=== PATIENT | female | born 1965 | race Caucasian/White ===

== ENCOUNTER 2017-02-14 09:48 | Emergency (ER) | payer MEDICAID ==
[~2017-02-14] VITALS: Ht 175.3 cm; Wt 89.8 kg
[2017-02-14 10:38] LABS: Basophils # (auto) 0 uL; Basophils % (auto) 0.7 % (0.0-2.0); CONDITION Y; Eosinophils # (auto) 0.1 uL; Eosinophils % (auto) 1.8 % (0.0-7.0); Hematocrit 40.2 % (36.0-46.0); Hemoglobin 13.5 g/dL (12.2-16.2); Lymphocytes # (auto) 1.6 uL; Lymphocytes % (auto) 27.8 % (10.0-50.0); Mean Corpuscular Hgb Conc. 33.6 g/dL (32.0-36.0); Mean Platelet Volume 12.6 fL (7.4-10.4); Monocytes # (auto) 0.4 uL; Monocytes % (auto) 6.7 % (0.0-12.0); Neutrophils # (auto) 3.7 uL; Platelet Count (auto) 162 10^3/uL (140-450); Red Cell Distribution Width 12.7 % (11.6-16.0); White Blood Cell 5.8 10^3/uL (4.4-10.8)
[2017-02-14 10:56] LABS: Albumin 3.9 g/dL (3.4-5.0); BUN/Creatinine Ratio 19.3; Calcium 8.8 mg/dL (8.5-10.1); Potassium 4.4 mmol/L (3.5-5.1)
[2017-02-14 11:00] LABS: Bilirubin, Total 0.3 mg/dL (0.2-1.0); Total Protein 7.2 g/dL (6.4-8.2)
[2017-02-14 12:31] VITALS: BP 125/75
== END 2017-02-14 12:29 | disposition home or self-care (01) ==
LOC: ER 09:49
DX: K64.8 Other hemorrhoids (principal); Z88.0 Allergy status to penicillin; Z87.891 Personal history of nicotine dependence
CPT/HCPCS: 36415; 74176; 80053; 85025

== ENCOUNTER 2017-02-22 14:14 | Inpatient (IN) | payer MEDICAID ==
[~2017-02-22] VITALS: Ht 175.3 cm; Wt 93.9 kg
[2017-02-22] MEDS ORDERED: SODIUM CHLORIDE 0.9% 1,000 ML IVB ONE (14:42)
[2017-02-22] MEDS ORDERED: PANTOPRAZOLE 40 MG/10 ML VIAL IV STA (14:42)
[2017-02-22] MEDS ORDERED: ONDANSETRON HCL 4 MG/2 ML VIAL IV ONE (14:45)
[2017-02-22] MEDS ORDERED: HYDROmorphone HCL 2 MG/ML VL IV ONE (14:45)
[2017-02-22 15:12] LABS: Basophils # (auto) 0 uL; CONDITION Y; Eosinophils # (auto) 0 uL; Hematocrit 41.7 % (36.0-46.0); Hemoglobin 14.2 g/dL (12.2-16.2); Lymphocytes # (auto) 0.7 uL; Lymphocytes % (auto) 4.3 % (10.0-50.0); Mean Corpuscular Volume 91.2 fL (80.0-100.0); Mean Platelet Volume 12.6 fL (7.4-10.4); Monocytes # (auto) 0.5 uL; Monocytes % (auto) 2.7 % (0.0-12.0); Neutrophils # (auto) 15.7 uL; Platelet Count (auto) 172 10^3/uL (140-450); Red Cell Distribution Width 12.4 % (11.6-16.0); SUSPECT SEE PRINTOUT; White Blood Cell 16.9 10^3/uL (4.4-10.8)
[2017-02-22] MEDS ORDERED: LEVOFLOXACIN 500MG 100 ML IV ONE ×2 (15:15→16:45)
[2017-02-22 15:33] LABS: Anion Gap 11 (5-15); Blood Urea Nitrogen 16 mg/dL (7-18); Calcium 8.5 mg/dL (8.5-10.1); Carbon Dioxide 21 mmol/L (21-32); Chloride 105 mmol/L (98-107); GFR African American 92 mL/min; GFR Non-African American 76 mL/min; Glucose 127 mg/dL (74-106); Magnesium 2.3 mg/dL (1.6-2.6); Potassium 3.2 mmol/L (3.5-5.1); Sodium 137 mmol/L (136-145)
[2017-02-22 15:37] LABS: Amylase 32 U/L (25-115)
[2017-02-22 15:38] LABS: Alkaline Phosphatase 50 U/L (45-117); Aspartate Aminotransferase 14 U/L (15-37); Bilirubin, Total 0.5 mg/dL (0.2-1.0); Total Protein 7.5 g/dL (6.4-8.2)
[2017-02-22 15:44] LABS: INR 0.97 (0.9-1.15); Partial Thromboplastin Time 25.7 sec (22.64-33.71); Prothrombin Time 10.6 sec (9.37-12.3)
[2017-02-22] MEDS ORDERED: LORazepam 0.5 MG TAB PO PRN (15:45)
[2017-02-22] MEDS ORDERED: TEMAZEPAM 15 MG CAP PO PRN (15:45)
[2017-02-22] MEDS ORDERED: HYDROcodone-ACET 5/325MG TAB PO PRN (15:45)
[2017-02-22] MEDS ORDERED: ONDANSETRON HCL 4 MG/2 ML VIAL IV PRN (15:45)
[2017-02-22] MEDS ORDERED: POTASSIUM CHL 20 Meq TABLET PO ONE (15:45)
[2017-02-22] MEDS ORDERED: metroNIDAZOLE 500MG/100ML 100 ML IV ONE (15:45)
[2017-02-22] MEDS ORDERED: D5W/SOD CHL 0.45%/KCL 40MEQ 1,000 ML IV ONE (16:00)
[2017-02-22] MEDS: MORPHINE SULF INJ 2 MG/ML SYRINGE 1ML IV PRN ×2 (18:11→23:47)
[2017-02-22 18:15] VITALS: BP 129/76
[2017-02-22 20:00] VITALS: BP 111/73
[2017-02-22 20:28] LABS: Urine Bilirubin Negative (Negative); Urine Blood Negative /uL (Negative); Urine Color Yellow (Yellow); Urine Glucose TRACE mg/dL (Normal); Urine Mucus FEW (None Seen); Urine Nitrite Negative (Negative); Urine RBC 1 /hpf (0 - 4); Urine Squamous Epithelial Cell FEW /hpf (<5); Urine Urobilinogen Normal (Negative)
[2017-02-22 20:29] LABS: Urine Ketone 2+ (Negative)
[2017-02-22] MEDS: metroNIDAZOLE 500MG/100ML 100 ML IV SCH (21:31)
[2017-02-22 22:00] VITALS: BP 111/73
[2017-02-23 05:18] LABS: Basophils # (auto) 0 uL; Basophils % (auto) 0.2 % (0.0-2.0); CONDITION Y; Eosinophils # (auto) 0 uL; Eosinophils % (auto) 0.3 % (0.0-7.0); Hematocrit 41.5 % (36.0-46.0); Hemoglobin 13.8 g/dL (12.2-16.2); Lymphocytes # (auto) 1.7 uL; Lymphocytes % (auto) 12.8 % (10.0-50.0); Mean Corpuscular Hgb Conc. 33.3 g/dL (32.0-36.0); Mean Platelet Volume 12.9 fL (7.4-10.4); Monocytes # (auto) 0.5 uL; Monocytes % (auto) 4.1 % (0.0-12.0); Neutrophils # (auto) 10.9 uL; Neutrophils % (auto) 82.6 % (37.0-80.0); Platelet Count (auto) 154 10^3/uL (140-450); Red Cell Distribution Width 12.7 % (11.6-16.0); SUSPECT SEE PRINTOUT; White Blood Cell 13.3 10^3/uL (4.4-10.8)
[2017-02-23 05:30] VITALS: BP 104/66
[2017-02-23 05:30] LABS: Albumin 3.4 g/dL (3.4-5.0); Calcium 8.4 mg/dL (8.5-10.1); Potassium 3.7 mmol/L (3.5-5.1)
[2017-02-23 05:34] LABS: BUN/Creatinine Ratio 11.8
[2017-02-23 05:36] LABS: Bilirubin, Total 0.7 mg/dL (0.2-1.0); Total Protein 6.9 g/dL (6.4-8.2)
[2017-02-23] MEDS: metroNIDAZOLE 500MG/100ML 100 ML IV SCH ×3 (06:08→21:53)
[2017-02-23] MEDS ORDERED: SODIUM CHLORIDE LOCK 20 ML ONE (06:50)
[2017-02-23] MEDS ORDERED: fentaNYL CITRATE 100 MCG/2 ML VL ONE (06:50)
[2017-02-23] MEDS ORDERED: ROCURONIUM 10MG/ML 10ML VIAL IV ONE (06:50)
[2017-02-23] MEDS ORDERED: PROPOFOL 10 MG/ML 20 ML IV ONE (06:50)
[2017-02-23] MEDS ORDERED: LIDOCAINE HCL 100 MG/5ML (2%) SYRG INJ IV ONE (06:50)
[2017-02-23] MEDS ORDERED: NEOSTIGMINE 1 MG/ML INJ (10mg/10ML VIAL) ONE (06:50)
[2017-02-23] MEDS ORDERED: MIDAZOLAM HCL 1MG/1ML-2 ML VIAL ONE (06:50)
[2017-02-23] MEDS ORDERED: KETOROLAC TROMETH 60MG/2ML VIAL IM ONE (06:50)
[2017-02-23] MEDS ORDERED: ONDANSETRON HCL 4 MG/2 ML VIAL ONE (06:50)
[2017-02-23] MEDS ORDERED: GLYCOPYRROLATE 0.2 MG/ML 1ML VIAL ONE (06:50)
[2017-02-23] MEDS ORDERED: LEVOFLOXACIN 500MG 100 ML IV ONE (07:17)
[2017-02-23 07:30] VITALS: BP 111/73
[2017-02-23] MEDS ORDERED: MEPERIDINE HCL (50 MG/ML) 1 ML VIAL ONE (07:44)
[2017-02-23] MEDS ORDERED: KETOROLAC TROMETH 30 MG/ML 1ML VIAL IV ONE ×2 (08:45)
[2017-02-23] MEDS ORDERED: METOCLOPRAMIDE HCL 5MG/ml INJ 2ml VIAL IV ONE ×2 (08:45)
[2017-02-23] MEDS ORDERED: HYDROmorphone HCL 2 MG/ML VL IV PRN (08:45)
[2017-02-23] MEDS: HYDROmorphone HCL 2 MG/ML VL IV PRN ×2 (09:07→09:17)
[2017-02-23 13:00] VITALS: BP 118/78
[2017-02-23] MEDS: MORPHINE SULF INJ 2 MG/ML SYRINGE 1ML IV PRN ×3 (13:04→22:44)
[2017-02-23] MEDS: LEVOFLOXACIN 500MG 100 ML IV SCH (13:04)
[2017-02-23 17:00] VITALS: BP 100/52
[2017-02-23] MEDS: SODIUM CHLORIDE 0.9% 1,000 ML IV SCH (17:07)
[2017-02-23] MEDS ORDERED: HCTZ25T PO (19:54)
[2017-02-23] MEDS ORDERED: ETH1T PO (19:54)
[2017-02-23] MEDS ORDERED: LORA1TAB12 PO (19:54)
[2017-02-23] MEDS ORDERED: AMAN PO (19:54)
[2017-02-23] MEDS ORDERED: DEXT20CA PO (19:54)
[2017-02-23] MEDS ORDERED: IMIP50TA27 PO (19:54)
[2017-02-23] MEDS ORDERED: IBU600T PO (19:54)
[2017-02-23] MEDS ORDERED: TOPI25TA84 PO (19:54)
[2017-02-23] MEDS ORDERED: LOR05T GT (19:54)
[2017-02-23 21:30] VITALS: BP 116/70
[2017-02-24] MEDS: ACETAMINOPHEN 500 MG TAB PO PRN ×2 (00:58→10:01)
[2017-02-24] MEDS: SODIUM CHLORIDE 0.9% 1,000 ML IV SCH ×2 (03:50→17:10)
[2017-02-24 05:00] VITALS: BP 111/64
[2017-02-24 05:12] LABS: Basophils # (auto) 0 uL; Basophils % (auto) 0.2 % (0.0-2.0); CONDITION Y; Eosinophils # (auto) 0 uL; Eosinophils % (auto) 0.1 % (0.0-7.0); Hemoglobin 12.7 g/dL (12.2-16.2); Lymphocytes # (auto) 1.7 uL; Lymphocytes % (auto) 13.5 % (10.0-50.0); Mean Corpuscular Hemoglobin 31.4 pg (28.0-32.0); Mean Corpuscular Hgb Conc. 33.4 g/dL (32.0-36.0); Mean Platelet Volume 12.7 fL (7.4-10.4); Monocytes # (auto) 0.7 uL; Neutrophils # (auto) 9.8 uL; Neutrophils % (auto) 80.2 % (37.0-80.0); Platelet Count (auto) 166 10^3/uL (140-450); Red Cell Distribution Width 12.6 % (11.6-16.0); White Blood Cell 12.2 10^3/uL (4.4-10.8)
[2017-02-24 05:46] LABS: BUN/Creatinine Ratio 9.3; Calcium 8.5 mg/dL (8.5-10.1); Potassium 3.7 mmol/L (3.5-5.1)
[2017-02-24] MEDS: metroNIDAZOLE 500MG/100ML 100 ML IV SCH ×2 (06:09→14:02)
[2017-02-24] MEDS: LEVOFLOXACIN 500MG 100 ML IV SCH (09:25)
[2017-02-24] MEDS ORDERED: METR500T PO (10:54)
[2017-02-24] MEDS ORDERED: LEVO500T21 PO (10:54)
[2017-02-24 12:11] VITALS: BP 114/63
[2017-02-24 17:00] VITALS: BP 129/79
== END 2017-02-24 18:50 | disposition home or self-care (01) | DRG 710 ==
LOC: ER 14:23 → OVERFLOW 14:24 → EAST 17:36 → CENTRAL 18:53
PROVIDERS: ADMIT Nurse Practitioner Family; ATTEND Internal Medicine
PROC: 0DTJ4ZZ Resection of Appendix, Percutaneous Endoscopic Approach (ICD-10-PCS; principal; 2017-02-23 07:29)
DX: A41.9 Sepsis, unspecified organism (principal); G35 Multiple sclerosis; K35.80 Unspecified acute appendicitis; E87.6 Hypokalemia; K64.9 Unspecified hemorrhoids; Z90.710 Acquired absence of both cervix and uterus; Z88.0 Allergy status to penicillin; Z85.41 Personal history of malignant neoplasm of cervix uteri; Z87.891 Personal history of nicotine dependence; Z80.0 Family history of malignant neoplasm of digestive organs; Z83.3 Family history of diabetes mellitus
CPT/HCPCS: 36415; 71010; 74176; 80048; 80053; 81001; 82150; 83690; 83735; 84484; 85025; 85610; 85730; 86850; 86900; 86901; 93005; 94761; 96361; 96365; 96367; 96375; 96376; C9113; J1885; J1956; J2250; J2405; J2704; J3490

== ENCOUNTER 2021-02-03 15:40 | Emergency (ER) | payer OTHER, MEDICAID ==
[~2021-02-03] VITALS: Ht 175.3 cm; Wt 93.0 kg
[~2021-02-03 15:40] MED LIST: AMAN100C13 PO; DEXT20CA PO; ETH1T PO; HYDR25TA5 PO; IBUP600T28 PO; IMIP50TA2 PO; LEVO500T31 PO; LORA0.5T20 GT; LORA1TAB23 PO; METR500T PO; TOPI25TA84 PO
[2021-02-03 17:06] LABS: Urine Bacteria FEW /hpf (None Seen); Urine Blood Negative /uL (Negative); Urine Specific Gravity 1.021 (1.001-1.035); Urine WBC <1 /hpf (0 - 5)
[2021-02-03 20:02] VITALS: BP 138/86
== END 2021-02-03 20:09 | disposition home or self-care (01) ==
LOC: ER 15:40 → MERGE 15:40 → ER 20:09
DX: N39.0 Urinary tract infection, site not specified (principal); L03.012 Cellulitis of left finger; Z88.0 Allergy status to penicillin
CPT/HCPCS: 81001; 87086

== ENCOUNTER 2022-04-01 11:50 | Emergency (ER) | payer MEDICAID, OTHER ==
[~2022-04-01] VITALS: Ht 175.3 cm; Wt 84.0 kg
[2022-04-01 11:50] VITALS: BP 125/76
[2022-04-01] MEDS ORDERED: ASPirin 81 mg TAB PO ONE (12:15)
[2022-04-01 12:34] LABS: Basophils # (auto) 0.1 10 ^3/uL (0-0.2); Eosinophils # (auto) 0.1 10 ^3/uL (0-0.8); Hematocrit 44.2 % (36.0-46.0); Hemoglobin 14.5 g/dL (12.2-16.2); Lymphocytes # (auto) 1.2 10 ^3/uL (0.4-5.4); Lymphocytes % (auto) 23.2 % (10.0-50.0); Mean Corpuscular Hemoglobin 31.9 pg (28.0-32.0); Mean Corpuscular Hgb Conc. 32.7 g/dL (32.0-36.0); Mean Corpuscular Volume 97.4 fL (80.0-100.0); Monocytes # (auto) 0.3 10 ^3/uL (0-1.3); Monocytes % (auto) 6.5 % (0.0-12.0); Neutrophils # (auto) 3.6 10 ^3/uL (1.6-8.6); Neutrophils % (auto) 68.3 % (37.0-80.0); Nucleated Red Blood Cells % 0.1 %; Red Blood Cells 4.54 10^6/uL (4.0-5.20); Red Cell Distribution Width 12.3 % (11.8-14.3); White Blood Cell 5.3 10^3/uL (4.4-10.8)
[2022-04-01 12:38] LABS: Albumin 4.1 g/dL (3.4-5.0); Calcium 8.8 mg/dL (8.5-10.1); Magnesium 2.8 mg/dL (1.6-2.6); Potassium 4.5 mmol/L (3.5-5.1)
[2022-04-01 12:41] LABS: BUN/Creatinine Ratio 15.7; Bilirubin, Total 0.3 mg/dL (0.2-1.0); Total Protein 7.3 g/dL (6.4-8.2)
== END 2022-04-01 16:06 | disposition home or self-care (01) ==
LOC: ER 11:50
DX: R07.89 Other chest pain (principal); Z90.49 Acquired absence of other specified parts of digestive tract; Z90.710 Acquired absence of both cervix and uterus; Z87.891 Personal history of nicotine dependence; Z79.1 Long term (current) use of non-steroidal anti-inflammatories (NSAID); Z79.2 Long term (current) use of antibiotics; Z79.899 Other long term (current) drug therapy; Z88.0 Allergy status to penicillin
CPT/HCPCS: 36415; 71046; 80053; 83735; 84484; 85025; 85379; 93005

== ENCOUNTER 2022-10-09 10:05 | Emergency (ER) | payer OTHER ==
[~2022-10-09] VITALS: Ht 175.3 cm; Wt 87.8 kg
[2022-10-09 10:19] VITALS: BP 132/88
[2022-10-09 10:35] LABS: Urine WBC None Seen /hpf (0 - 5)
[2022-10-09 11:00] LABS: Urine Bacteria FEW /hpf (None Seen); Urine Blood Negative /uL (Negative); Urine Specific Gravity 1.005 (1.001-1.035)
[2022-10-09 11:09] LABS: Basophils # (auto) 0.1 10 ^3/uL (0-0.2); Basophils % (auto) 0.9 % (0.0-2.0); Eosinophils # (auto) 0.1 10 ^3/uL (0-0.8); Eosinophils % (auto) 1.1 % (0.0-7.0); Lymphocytes # (auto) 1.4 10 ^3/uL (0.4-5.4); Lymphocytes % (auto) 21.1 % (10.0-50.0); Mean Corpuscular Hemoglobin 31.8 pg (28.0-32.0); Mean Corpuscular Volume 93.5 fL (80.0-100.0); Monocytes # (auto) 0.6 10 ^3/uL (0-1.3); Monocytes % (auto) 9.4 % (0.0-12.0); Neutrophils # (auto) 4.5 10 ^3/uL (1.6-8.6); Neutrophils % (auto) 67.5 % (37.0-80.0); Nucleated Red Blood Cells % 0.1 %; Red Blood Cells 4.71 10^6/uL (4.0-5.20); Red Cell Distribution Width 12.3 % (11.8-14.3); White Blood Cell 6.6 10^3/uL (4.4-10.8)
[2022-10-09 11:11] LABS: Alcohol, Urine < 3.0 mg/dL (0-10); Amphetamine Screen, Urine NEGATIVE (NEGATIVE); Barbiturate Scree,Urine NEGATIVE (NEGATIVE); Benzodiazephine Screen, Urine NEGATIVE (NEGATIVE); Cannabinoid Screen, Urine NEGATIVE (NEGATIVE); Cocaine Screen, Urine NEGATIVE (NEGATIVE); Opiate Scree,Urine NEGATIVE (NEGATIVE); Phencyclidine Screen, Urine NEGATIVE (NEGATIVE)
[2022-10-09 11:32] LABS: Calcium 9.4 mg/dL (8.5-10.1); Potassium 3.7 mmol/L (3.5-5.1)
[2022-10-09 11:34] LABS: Bilirubin, Total 0.4 mg/dL (0.2-1.0); Total Protein 7.8 g/dL (6.4-8.2)
== END 2022-10-09 19:30 | disposition home or self-care (01) ==
LOC: ER 10:05
DX: R53.1 Weakness (principal); M54.50 Low back pain, unspecified; F12.10 Cannabis abuse, uncomplicated; Z88.0 Allergy status to penicillin; Z90.710 Acquired absence of both cervix and uterus; Z87.891 Personal history of nicotine dependence
CPT/HCPCS: 36415; 71045; 80053; 80307; 81001; 84484; 85025

== ENCOUNTER 2022-12-06 08:19 | Emergency (ER) | payer OTHER ==
[~2022-12-06] VITALS: Ht 175.3 cm; Wt 84.1 kg
[2022-12-06 10:20] LABS: Urine WBC None Seen /hpf (0 - 5)
[2022-12-06 11:00] LABS: Urine Bacteria FEW /hpf (None Seen); Urine Blood Negative /uL (Negative)
[2022-12-06 12:13] LABS: Basophils # (auto) 0.1 10 ^3/uL (0-0.2); Basophils % (auto) 0.7 % (0.0-2.0); Eosinophils # (auto) 0 10 ^3/uL (0-0.8); Eosinophils % (auto) 0.6 % (0.0-7.0); Hematocrit 46.3 % (36.0-46.0); Hemoglobin 15.5 g/dL (12.2-16.2); Lymphocytes # (auto) 1.2 10 ^3/uL (0.4-5.4); Lymphocytes % (auto) 17.4 % (10.0-50.0); Mean Corpuscular Hemoglobin 32.1 pg (28.0-32.0); Mean Corpuscular Hgb Conc. 33.4 g/dL (32.0-36.0); Mean Corpuscular Volume 95.9 fL (80.0-100.0); Monocytes # (auto) 0.5 10 ^3/uL (0-1.3); Neutrophils # (auto) 5.3 10 ^3/uL (1.6-8.6); Neutrophils % (auto) 74.3 % (37.0-80.0); Nucleated Red Blood Cells % 0.1 %; Red Blood Cells 4.83 10^6/uL (4.0-5.20); Red Cell Distribution Width 12.4 % (11.8-14.3); White Blood Cell 7.1 10^3/uL (4.4-10.8)
[2022-12-06 13:32] LABS: Calcium 9.5 mg/dL (8.5-10.1); Potassium 3.6 mmol/L (3.5-5.1)
[2022-12-06 13:38] LABS: Albumin 4.4 g/dL (3.4-5.0); BUN/Creatinine Ratio 23.9 (10.0-20.0); Bilirubin, Total 0.5 mg/dL (0.2-1.0); Total Protein 7.5 g/dL (6.4-8.2)
[2022-12-06 15:12] VITALS: BP 114/66
== END 2022-12-06 15:13 | disposition home or self-care (01) ==
LOC: ER 08:19
DX: B34.9 Viral infection, unspecified (principal); R51.9 Headache, unspecified; R07.89 Other chest pain; Z90.49 Acquired absence of other specified parts of digestive tract; Z90.710 Acquired absence of both cervix and uterus; Z87.891 Personal history of nicotine dependence; Z79.2 Long term (current) use of antibiotics; Z79.899 Other long term (current) drug therapy; Z88.0 Allergy status to penicillin; Z20.822 Contact with and (suspected) exposure to COVID-19
CPT/HCPCS: 36415; 70450; 71046; 80053; 81001; 83880; 84484; 85025; 85379; 87426; 87804; 93005

== ENCOUNTER 2023-03-09 06:47 | Emergency (ER) | payer OTHER ==
[~2023-03-09] VITALS: Ht 175.3 cm; Wt 86.3 kg
[~2023-03-09 06:47] MED LIST changes: -AMAN100C13 PO; +IBUP1TAB5 PO; -IBUP600T28 PO; -IMIP50TA2 PO; +LORA-1121 GT; +LORA-1123 PO; -LORA0.5T20 GT; -LORA1TAB23 PO; +[UNRECOGNIZED DRUG - CODE] PO; +[UNRECOGNIZED DRUG - CODE] PO
[2023-03-09 08:04] LABS: Basophils # (auto) 0 10 ^3/uL (0-0.2); Basophils % (auto) 0.9 % (0.0-2.0); Eosinophils # (auto) 0.1 10 ^3/uL (0-0.8); Eosinophils % (auto) 2.2 % (0.0-7.0); Hematocrit 44.7 % (36.0-46.0); Hemoglobin 15.2 g/dL (12.2-16.2); Lymphocytes # (auto) 1.1 10 ^3/uL (0.4-5.4); Lymphocytes % (auto) 20.4 % (10.0-50.0); Mean Corpuscular Hemoglobin 32.2 pg (28.0-32.0); Mean Corpuscular Hgb Conc. 33.9 g/dL (32.0-36.0); Mean Corpuscular Volume 94.9 fL (80.0-100.0); Monocytes # (auto) 0.4 10 ^3/uL (0-1.3); Monocytes % (auto) 7.3 % (0.0-12.0); Neutrophils # (auto) 3.6 10 ^3/uL (1.6-8.6); Neutrophils % (auto) 69.2 % (37.0-80.0); Nucleated Red Blood Cells % 0.1 %; Red Blood Cells 4.71 10^6/uL (4.0-5.20); Red Cell Distribution Width 12.3 % (11.8-14.3); White Blood Cell 5.2 10^3/uL (4.4-10.8)
[2023-03-09 08:15] LABS: Urine Bacteria MOD /hpf (None Seen); Urine Blood Negative /uL (Negative); Urine Clarity HAZY (Clear); Urine Color Yellow (Yellow); Urine Hyaline Cast FEW /lpf (0 - 2); Urine Mucus FEW (None Seen); Urine Protein, UAD TRACE (Negative); Urine Specific Gravity 1.018 (1.001-1.035); Urine Urobilinogen Normal (Negative); Urine WBC 1 /hpf (0 - 5)
[2023-03-09 08:16] LABS: Alanine Aminotransferase 23 U/L (7-40); Albumin 4.5 g/dL (3.2-4.8); Alkaline Phosphatase 55 U/L (46-116); Anion Gap 9.2 (5-15); Aspartate Aminotransferase 25 U/L (13-40); BUN/Creatinine Ratio 20.3 (10.0-20.0); Bilirubin, Total 0.4 mg/dL (0.2-1.0); Blood Urea Nitrogen 15 mg/dL (9-23); Calcium 9.3 mg/dL (8.5-10.1); Carbon Dioxide 23.8 mmol/L (20-30); Chloride 106 mmol/L (98-107); Glucose 94 mg/dL (74-106); Magnesium 2.2 mg/dL (1.6-2.6); Potassium 3.8 mmol/L (3.5-5.1); Sodium 139 mmol/L (136-145); Total Protein 6.7 g/dL (5.7-8.2)
[2023-03-09] MEDS ORDERED: SODIUM CHLORIDE 0.9% 1,000 ML IV ONE (08:45)
[2023-03-09] MEDS ORDERED: DexAMETHasone SOD PHOS 10MG/1ML VIAL INJ IM ONE (12:30)
[2023-03-09 12:49] VITALS: BP 122/84; PULSE 64; RESP 21; TEMP 98; O2SAT 99
== END 2023-03-09 13:00 | disposition home or self-care (01) ==
LOC: ER 06:47
DX: G35 Multiple sclerosis (principal); F12.90 Cannabis use, unspecified, uncomplicated; Z90.710 Acquired absence of both cervix and uterus; Z90.49 Acquired absence of other specified parts of digestive tract; Z87.891 Personal history of nicotine dependence
CPT/HCPCS: 36415; 70450; 71045; 80053; 81001; 82962; 83735; 83880; 84484; 85025; 93005; 96360; 96372; 99285; J1100; J7030

== ENCOUNTER → 2023-12-20 | Outpatient (CLI) | payer OTHER ==
[~2023-12-20] MED LIST changes: +IMIP50TA PO; -[UNRECOGNIZED DRUG - CODE] PO
[2023-12-20 09:40] LABS: Basophils # (auto) 0.1 10 ^3/uL (0-0.2); Eosinophils # (auto) 0.1 10 ^3/uL (0-0.8); Hematocrit 42.4 % (36.0-46.0); Hemoglobin 14.1 g/dL (12.2-16.2); Lymphocytes # (auto) 1.3 10 ^3/uL (0.4-5.4); Lymphocytes % (auto) 21.6 % (10.0-50.0); Mean Corpuscular Hemoglobin 31.1 pg (28.0-32.0); Mean Corpuscular Hgb Conc. 33.4 g/dL (32.0-36.0); Mean Corpuscular Volume 93.1 fL (80.0-100.0); Monocytes # (auto) 0.5 10 ^3/uL (0-1.3); Monocytes % (auto) 7.9 % (0.0-12.0); Neutrophils # (auto) 4.2 10 ^3/uL (1.6-8.6); Neutrophils % (auto) 67.5 % (37.0-80.0); Nucleated Red Blood Cells % 0.1 %; Red Blood Cells 4.55 10^6/uL (4.0-5.20); Red Cell Distribution Width 13.3 % (11.8-14.3); White Blood Cell 6.2 10^3/uL (4.4-10.8)
[2023-12-20 09:52] LABS: Urine Bacteria None Seen /hpf (None Seen); Urine WBC None Seen /hpf (0 - 5)
[2023-12-20 09:59] LABS: Urine Blood Negative /uL (Negative); Urine Clarity Clear (Clear); Urine Color Light-Yellow (Yellow); Urine Protein, UAD TRACE (Negative); Urine Specific Gravity 1.023 (1.001-1.035); Urine Urobilinogen Normal (Negative); Urine pH 6.5 (5.0-9.0)
[2023-12-20 10:16] LABS: Alanine Aminotransferase 16 U/L (7-40); Alkaline Phosphatase 47 U/L (46-116); Anion Gap 6 (5-15); BUN/Creatinine Ratio 15.7 (10.0-20.0); Blood Urea Nitrogen 13 mg/dL (9-23); Calcium 9.7 mg/dL (8.5-10.1); Carbon Dioxide 26 mmol/L (20-30); Chloride 108 mmol/L (98-107); Glucose 89 mg/dL (74-106); Potassium 3.8 mmol/L (3.5-5.1); Sodium 140 mmol/L (136-145); Triglycerides 119 mg/dL (< 150)
[2023-12-20 10:17] LABS: Albumin 4.5 g/dL (3.2-4.8); LDL Cholesterol 91 mg/dL (< 100)
[2023-12-20 10:18] LABS: Aspartate Aminotransferase 14 U/L (13-40); Bilirubin, Total 0.5 mg/dL (0.2-1.0); Cholesterol 189 mg/dL (< 200); HDL Cholesterol 75 mg/dL (40-59)
[2023-12-21 18:06] LABS: Chlamydia Trachomatis, NAA Negative (Negative); Neisseria gonorrhoeae, NAA Negative (Negative)
== END | disposition home or self-care (01) ==
LOC: LAB 09:23
DX: Z00.01 Encounter for general adult medical examination with abnormal findings (principal); Z12.11 Encounter for screening for malignant neoplasm of colon; M25.50 Pain in unspecified joint; E55.9 Vitamin D deficiency, unspecified; Z11.3 Encounter for screening for infections with a predominantly sexual mode of transmission
CPT/HCPCS: 36415; 80053; 80061; 81001; 82306; 83036; 84443; 85025; 86431

== ENCOUNTER 2024-05-16 15:52 | Inpatient (IN) | payer OTHER ==
[~2024-05-16] VITALS: Ht 175.3 cm; Wt 99.0 kg
--- NOTE | 2024-05-16 16:07 | ED.PDOC ---
History of Present Illness HPI Comments 58-year-old female presents with a chief complaint of body pain. Patient states that she is having generalized body pain. Patient has MS and believes that she is having a flare up. Patient reports that her body "feels like I want to fall over". Patient denies any injuries or trauma. Chief Complaint: Body Pain Time Seen by MD: 15:58 Primary Care Provider: ISADORA Lafleur Notes: Medications, Allergies Allergies: Coded Allergies: Penicillins (Verified Allergy, Mild, 12/01/10) Home Meds Active Scripts Metronidazole (Flagyl) 500 Mg Tab, 500 MG PO TID, #21 TAB Prov:SHANNA STODDARD MD 02/24/17 Levofloxacin (Levaquin) 500 Mg Tab, 500 MG PO DAILY, #7 TAB Prov:SHANNA STODDARD MD 02/24/17 Reported Medications Dextromethorphan Hbr-Quinidine (NUEDEXTA) 1 Cap Cap, 1 CAP PO DAILY, CAP 02/23/17 Topiramate (Topiramate) 25 Mg Tab, 1 TAB PO BID, #60 TAB 02/23/17 Lorazepam (Lorazepam) 1 Mg Tab, 1 TAB PO TID, #90 TAB 02/23/17 Lorazepam (ATIVAN TABLET) 0.5 Mg Tb, 0.5 MG GT 02/23/17 Imipramine Hcl (Imipramine Hcl) 50 Mg Tab, 50 MG PO HS, TAB 02/23/17 Ibuprofen Micronized (Ibuprofen) 600 Mg Tab, 600 MG PO, TAB 02/23/17 Hctz (Hydrochlorothiazide) 25 Mg Tab, 12.5 MG PO EOD, TAB 02/23/17 Estradiol (ESTRACE TABLET) 1 Mg Tb, 1 MG PO DAILY 02/23/17 Amantadine HCl (Amantadine HCl) 100 Mg Cap, 100 MG PO BID, CAP 02/23/17 Information Source: Patient Mode of Arrival: Ambulatory Severity: Moderate Timing: Hours Duration: Since onset Prehospital treatment: None Vital Signs Vital Signs Date Time Temp Pulse Resp B/P (MAP) Pulse Ox O2 Delivery O2 Flow Rate FiO2 05/16/24 16:00 97.7 98 24 150/81 (104) 100 Past Medical History PAST MEDICAL HISTORY: Cancer, Dementia Surgical History: Appendectomy, Hysterectomy COMMUNITY RELATIONS DIRECTOR History: Cervical Cancer Family History Family History: Reviewed,noncontributory to illness, No family hx of DM Social History Smoker: Quit Less Than 1 Year Alcohol: Rarely Drugs: Marijuana Lives In: Home Was a procedure done? Was a procedure done?: No X-Ray, Labs, Meds, VS Vital Signs Date Time Temp Pulse Resp B/P (MAP) Pulse Ox O2 Delivery O2 Flow Rate FiO2 05/16/24 16:00 97.7 98 24 150/81 (104) 100 Lab Test 05/16/24 16:19 Range/Units White Blood Count 7.8 4.4-10.8 10^3/uL Red Blood Count 4.65 4.0-5.20 10^6/uL Hemoglobin 14.5 12.2-16.2 g/dL Hematocrit 42.8 36.0-46.0 % Mean Corpuscular Volume 92.0 80.0-100.0 fL Mean Corpuscular Hemoglobin 31.2 28.0-32.0 pg Mean Corpuscular Hemoglobin Concent 33.9 32.0-36.0 g/dL Red Cell Distribution Width 12.6 11.8-14.3 % Platelet Count 192 140-450 10^3/uL Mean Platelet Volume 10.6 6.9-10.8 fL Neutrophils (%) (Auto) 76.4 37.0-80.0 % Lymphocytes (%) (Auto) 16.2 10.0-50.0 % Monocytes (%) (Auto) 5.2 0.0-12.0 % Eosinophils (%) (Auto) 1.6 0.0-7.0 % Basophils (%) (Auto) 0.6 0.0-2.0 % Neutrophils # (Auto) 6.0 1.6-8.6 10 ^3/uL Lymphocytes # (Auto) 1.3 0.4-5.4 10 ^3/uL Monocytes # (Auto) 0.4 0-1.3 10 ^3/uL Eosinophils # (Auto) 0.1 0-0.8 10 ^3/uL Basophils # (Auto) 0 0-0.2 10 ^3/uL Nucleated Red Blood Cells 0.1 % Sodium Level 139 136-145 mmol/L Potassium Level 3.7 3.5-5.1 mmol/L Chloride Level 105 98-107 mmol/L Carbon Dioxide Level 26 20-31 mmol/L Anion Gap 8 5-15 Blood Urea Nitrogen 18 9-23 mg/dL Creatinine 0.87 0.550-1.02 mg/dL Glomerular Filtration Rate Calc 77 >90 mL/min BUN/Creatinine Ratio 20.7 H 10.0-20.0 Serum Glucose 109 H 74-106 mg/dL Calcium Level 10.0 8.7-10.4 mg/dL Magnesium Level 2.3 1.6-2.6 mg/dL Total Bilirubin 0.4 0.2-1.0 mg/dL Aspartate Amino Transferase (AST) 19 13-40 U/L Alanine Aminotransferase (ALT) 15 7-40 U/L Alkaline Phosphatase 52 46-116 U/L Total Protein 7.4 5.7-8.2 g/dL Albumin 4.7 3.2-4.8 g/dL [place] [address] Ph: [phone] DIAGNOSTIC IMAGING Diagnostic Imaging Report : [id number] Signed PATIENT: KRISS LIMON ACCT: [id number] UNIT: [id number] : 1965 LOC: ER ROOM / BED: / AGE / SEX: 58 / F ADM STATUS: REG ER SERVICE 1605 ORDERING PHYSICIAN: CODIE DOMINGO MD PROCEDURE(s): HWOCT - HEAD WITHOUT CONTRAST REASON: Increased Multiple Scelorsisi Symptoms ORDER NUMBER(s): [id number], ACCESSION NUMBER(s): [id number] EXAM: CT HEAD WITHOUT CONTRAST INDICATION: Increased Multiple Scelorsisi Symptoms TECHNIQUE: CT of the head without intravenous contrast. Radiation Dose Information: CT Dose: CTDI volume is 53.31 mGy. Dose-length product is 1050.68 mGy*cm The dose indicators for CT are the volume Computed Tomography (CT) Dose Index (CTDIvol) and the Dose Length Product (DLP), and are measured in units of mGy and mGy-cm, respectively. These indicators are not patient dose, but values generated from the CT scanner acquisition factors. The report includes radiation exposure data for exposures received during this examination. COMPARISON: 03/09/2023 FINDINGS: There is no evidence of acute intracranial hemorrhage, extra-axial collection, mass effect, midline shift, herniation or hydrocephalus. The ventricles, sulci and cisterns are age appropriate. The bergman-white differentiation is intact. Patchy periventricular and subcortical white matter hypoattenuation is nonspecific but may be related to small vessel ischemic disease. The visualized paranasal sinuses and mastoid air cells are clear. The surrounding soft tissues and osseous structures are unremarkable. IMPRESSION: 1. Negative noncontrast CT of the head unchanged from 03/09/2023. 2. Recommend nonemergent MRI to evaluate for MS plaques which are not apparent on noncontrast CT head. ATED BY: TELLY BRADY Jr., DO DICTATED DATE/TIME: 05/16/241637 SIGNED BY: TELLY BRADY Jr., SIGNED DATE/TIME: 05/16/241637 CC: Time of 1ST Reevaluation: 16:28 Reevaluation 1ST: Unchanged Patient Education/Counseling: Diagnosis, Treatment, Prognosis Family Education/Counseling: No Family Present Departure 1 Departure Time of Disposition: 17:53 Impression: Primary Impression: Exacerbation of multiple sclerosis Disposition: ADMITTED INPATIENT Critical Care Note Critical Care Time?: No Stability Stability form required: No I personally scribed for CODIE DOMINGO MD ([email or web address]) on 05/16/24 at 16:07. Electronically submitted by Julián Saha ([email or web address]). I personally scribed for CODIE DOMINGO MD ([email or web address]) on 05/16/24 at 17:43. Electronically submitted by Tracey Hendricks ([email or web address]). CODIE DOMINGO MD May 16, 2024 16:07
[2024-05-16 16:24] LABS: Basophils # (auto) 0 10 ^3/uL (0-0.2); Basophils % (auto) 0.6 % (0.0-2.0); Eosinophils # (auto) 0.1 10 ^3/uL (0-0.8); Eosinophils % (auto) 1.6 % (0.0-7.0); Hematocrit 42.8 % (36.0-46.0); Hemoglobin 14.5 g/dL (12.2-16.2); Lymphocytes # (auto) 1.3 10 ^3/uL (0.4-5.4); Lymphocytes % (auto) 16.2 % (10.0-50.0); Mean Corpuscular Hemoglobin 31.2 pg (28.0-32.0); Mean Corpuscular Hgb Conc. 33.9 g/dL (32.0-36.0); Monocytes # (auto) 0.4 10 ^3/uL (0-1.3); Monocytes % (auto) 5.2 % (0.0-12.0); Neutrophils % (auto) 76.4 % (37.0-80.0); Nucleated Red Blood Cells % 0.1 %; Platelet Count (auto) 192 10^3/uL (140-450); Red Blood Cells 4.65 10^6/uL (4.0-5.20); Red Cell Distribution Width 12.6 % (11.8-14.3); White Blood Cell 7.8 10^3/uL (4.4-10.8)
--- NOTE | 2024-05-16 16:41 | DVH ---
EXAM: CT HEAD WITHOUT CONTRAST INDICATION: Increased Multiple Scelorsisi Symptoms TECHNIQUE: CT of the head without intravenous contrast. Radiation Dose Information: CT Dose: CTDI volume is 53.31 mGy. Dose-length product is 1050.68 mGy*cm The dose indicators for CT are the volume Computed Tomography (CT) Dose Index (CTDIvol) and the Dose Length Product (DLP), and are measured in units of mGy and mGy-cm, respectively. These indicators are not patient dose, but values generated from the CT scanner acquisition factors. The report includes radiation exposure data for exposures received during this examination. COMPARISON: 03/09/2023 FINDINGS: There is no evidence of acute intracranial hemorrhage, extra-axial collection, mass effect, midline s hift, herniation or hydrocephalus. The ventricles, sulci and cisterns are age appropriate. The bergman-white differentiation is intact. Patchy periventricular and subcortical white matter hypoattenuation is nonspecific but may be related to small vessel ischemic disease. The visualized paranasal sinuses and mastoid air cells are clear. The surrounding soft tissues and osseous structures are unremarkable. IMPRESSION: 1. Negative noncontrast CT of the head unchanged from 03/09/2023. 2. Recommend nonemergent MRI to evaluate for MS plaques which are not apparent on noncontrast CT head .
[2024-05-16 16:45] LABS: Alanine Aminotransferase 15 U/L (7-40); Albumin 4.7 g/dL (3.2-4.8); Alkaline Phosphatase 52 U/L (46-116); Anion Gap 8 (5-15); Aspartate Aminotransferase 19 U/L (13-40); BUN/Creatinine Ratio 20.7 (10.0-20.0); Bilirubin, Total 0.4 mg/dL (0.2-1.0); Blood Urea Nitrogen 18 mg/dL (9-23); Carbon Dioxide 26 mmol/L (20-31); Chloride 105 mmol/L (98-107); Glucose 109 mg/dL (74-106); Magnesium 2.3 mg/dL (1.6-2.6); Potassium 3.7 mmol/L (3.5-5.1); Sodium 139 mmol/L (136-145); Total Protein 7.4 g/dL (5.7-8.2)
[2024-05-16 19:01] LABS: Urine Bacteria MOD /hpf (None Seen); Urine Blood Negative /uL (Negative); Urine Clarity Clear (Clear); Urine Color Light-Yellow (Yellow); Urine Hyaline Cast FEW /lpf (0 - 2); Urine Protein, UAD Negative (Negative); Urine Specific Gravity 1.016 (1.001-1.035); Urine Urobilinogen Normal (Negative); Urine WBC <1 /hpf (0 - 5); Urine pH 5.5 (5.0-9.0)
--- NOTE | 2024-05-16 19:57 | DVHINCON2 ---
Date of service: May 16, [address] Burkett Reason for Consultation MS flare History of Present Illness Patient was talks excessively, she does not answer my questions properly, this is a difficult consultation Ms. Morales is a right-handed female with a history of anxiety, depression, asthma, cervical cancer s/p hysterectomy, she came to the [facility] on 05/16/2024 with a chief company of MS flares up. At this time, she was alert, fully oriented, but she is a very difficult historian, as a result, very long time spent with her to go obtained a history Because of a lot of nonspecific symptoms starting around 2013, the patient was diagnosed with multiple sclerosis in 2017 in the [facility] after MRI head, spine, lumbar puncture (she reports seven bands obtained) ([facility] progressive note, 01/30/15: increased oligoclonal bands, Normal IgG index). Today she came to the hospital because she was body pain, she feels her neck collapsing from the shoulder, body with collapsing from the waist, she has to use two cane to walk because for balance, the symptoms were typically present when she had MS exacerbation He was on many different MS medication, including Tysabri, Ocrevus, Mayzent. Tysabri and Mayzen helped, but Ocrevus caused severe side effects. The last time she had medication was about one year ago She reports that she has MS exacerbation once a few months of time, The following is the information I obtained from out of facility [facility] MRI CSP wwo, 12/04/20: Severe canal stenosis with mild impingement on the ventral thecal sac at C5-C6. Mild nonspecific increased or signal and postcontrast enhancement in the disc space at C5-C6. Findings could represent discitis in the appropriate clinical setting. Clinical correlation advised (The intrinsic cervical cord signal appears intact) MRI TSP wwo, 12/04/20: No significant posterior disc disease, central canal or neural foraminal narrowing (The thoracic cord signal and contour appear intact.) MRI LSP wwo, 12/04/20: Multilevel degenerative changes of the spine most severe at L5-S1 LLU info Progressive note, 01/30/15: increased oligoclonal bands, Normal IgG index EEG, 11/14/14: Mildly abnormal EEG MRI head, 10/25/13: Increased FLAITR and T2 lesions. Not felt to be typical of demyelination disease MRI CSP, 09/18/23: Degeneration MRI TSP, 09/17/13: Normal MRI LSP, 09/17/13: Degeneration Urinalysis, 04/29/2024: No UTI CBC, 05/16/2024: Unremarkable CMP, 04/29/2024: Unremarkable TG/HDL/LDL/HDL, 12/2023: 119/189/91/75 CT head, 05/16/24: 1. Negative noncontrast CT of the head unchanged from 03/09/2023. 2. Recommend nonemergent MRI to evaluate for MS plaques which are n ot apparent on noncontrast CT head Past Medical History Cervical cancer, dementia Past Surgical History Appendectomy, hysterectomy, low back surgery, Family History: Cancer of colon G8 FATHER Family history: Diabetes mellitus G8 MOTHER Family History Diabetes, cancer, Anxiety Social History She was tobacco smoke, but denies a history of alcohol or recreational sub stances abuse Allergies: Coded Allergies: Penicillins (Verified Allergy, Mild, 12/01/10) Home Meds Active Scripts Metronidazole (Flagyl) 500 Mg Tab, 500 MG PO TID, #21 TAB Prov:SHANNA STODDARD MD 02/24/17 Levofloxacin (Levaquin) 500 Mg Tab, 500 MG PO DAILY, #7 TAB Prov:SHANNA STODDARD MD 02/24/17 Reported Medications Dextromethorphan Hbr-Quinidine (NUEDEXTA) 1 Cap Cap, 1 CAP PO DAILY, CAP 02/23/17 Topiramate (Topiramate) 25 Mg Tab, 1 TAB PO BID, #60 TAB 02/23/17 Lorazepam (Lorazepam) 1 Mg Tab, 1 TAB PO TID, #90 TAB 02/23/17 Lorazepam (ATIVAN TABLET) 0.5 Mg Tb, 0.5 MG GT 02/23/17 Imipramine Hcl (Imipramine Hcl) 50 Mg Tab, 50 MG PO HS, TAB 02/23/17 Ibuprofen Micronized (Ibuprofen) 600 Mg Tab, 600 MG PO, TAB 02/23/17 Hctz (Hydrochlorothiazide) 25 Mg Tab, 12.5 MG PO EOD, TAB 02/23/17 Estradiol (ESTRACE TABLET) 1 Mg Tb, 1 MG PO DAILY 02/23/17 Amantadine HCl (Amantadine HCl) 100 Mg Cap, 100 MG PO BID, CAP 02/23/17 Review of Systems As above, the other systems are negative Vital Signs Vital Signs Date Time Temp Pulse Resp B/P (MAP) Pulse Ox O2 Delivery O2 Flow Rate FiO2 05/16/24 16:00 97.7 98 24 150/81 (104) 100 Physical Exam GENERAL EXAM: General: the patient is well developed and nourished. No acute distress. HEENT: Normocephalic, neck is supple, no carotid bruits. No mass. RESPIRATORY: Normal respiratory effort with symmetrical lung expansion. Lungs clear to auscultation. CARDIOVASCULAR: Regular rate and rhythm with no murmurs. S1, S2. ABDOMEN: Soft, nontender, normal bowel sound NEUROLOGICAL: MENTAL STATUS: Awake and alert. Oriented to person, place, time and general circumstances. Able to give personal history SPEECH, LANGUAGE, HIGHER CORTICAL FUNCTION: no aphasia or dysathria. CRANIAL NERVES: #2: Intact visual forde to confrontation. The optic discs were sharp. #3,4,6: Pupils are equal, round and reactive. EOMs full and conjugate. No nystagmus. #5: Facial sensation intact in all three divisions bilaterally. Mandibular strength intact. #7: Facial muscles symmetrical and strength intact. #8: Hearing grossly normal to voice. #9,10: Uvula and soft palate rise in the midline. Swallow and voice are normal. #11: Trapezius and sternomastoid strength intact bilaterally. #12: Tongue midline. No fasciculations or atrophy. SENSATION: Sensation to touch and pinprick is normal. MOTOR: Normal tone in the upper and lower extremity. Normal muscle bulk. No fasciculations. No abnormal movements or posturing. Muscle strength of the major groups in the upper extremities is 5/5. Muscle strength of the major groups in the lower extremities is 5/5. REFLEXES: Deep tendon reflexes are symmetrical. No pathological reflexes. CEREBELLAR/COORDINATION: Finger to nose ise normal bilaterally. GAIT/STATION: deferred. Labs/Diagnostic Data Labs Test 05/16/24 18:46 05/16/24 16:19 Range/Units Urine Color Light-yellow Yellow Urine Clarity Clear Clear Urine pH 5.5 5.0-9.0 Urine Specific [place] 1.016 1.001-1.035 Urine Protein Negative Negative Urine Ketones Negative Negative Urine Blood Negative Negative /uL Urine Nitrite Negative Negative Urine Bilirubin Negative Negative Urine Urobilinogen Normal Negative mg/dL Urine Leukocyte Esterase Negative Negative /uL Urine RBC 1 0 - 4 /hpf Urine WBC <1 0 - 5 /hpf Urine Squamous Epithelial Cells Few <5 /hpf Urine Bacteria Mod H None Seen /hpf Urine Hyaline Casts Few 0 - 2 /lpf Urine Glucose Normal Normal mg/dL White Blood Count 7.8 4.4-10.8 10^3/uL Red Blood Count 4.65 4.0-5.20 10^6/uL Hemoglobin 14.5 12.2-16.2 g/dL Hematocrit 42.8 36.0-46.0 % Mean Corpuscular Volume 92.0 80.0-100.0 fL Mean Corpuscular Hemoglobin 31.2 28.0-32.0 pg Mean Corpuscular Hemoglobin Concent 33.9 32.0-36.0 g/dL Red Cell Distribution Width 12.6 11.8-14.3 % Platelet Count 192 140-450 10^3/uL Mean Platelet Volume 10.6 6.9-10.8 fL Neutrophils (%) (Auto) 76.4 37.0-80.0 % Lymphocytes (%) (Auto) 16.2 10.0-50.0 % Monocytes (%) (Auto) 5.2 0.0-12.0 % Eosinophils (%) (Auto) 1.6 0.0-7.0 % Basophils (%) (Auto) 0.6 0.0-2.0 % Neutrophils # (Auto) 6.0 1.6-8.6 10 ^3/uL Lymphocytes # (Auto) 1.3 0.4-5.4 10 ^3/uL Monocytes # (Auto) 0.4 0-1.3 10 ^3/uL Eosinophils # (Auto) 0.1 0-0.8 10 ^3/uL Basophils # (Auto) 0 0-0.2 10 ^3/uL Nucleated Red Blood Cells 0.1 % Sodium Level 139 136-145 mmol/L Potassium Level 3.7 3.5-5.1 mmol/L Chloride Level 105 98-107 mmol/L Carbon Dioxide Level 26 20-31 mmol/L Anion Gap 8 5-15 Blood Urea Nitrogen 18 9-23 mg/dL Creatinine 0.87 0.550-1.02 mg/dL Glomerular Filtration Rate Calc 77 >90 mL/min BUN/Creatinine Ratio 20.7 H 10.0-20.0 Serum Glucose 109 H 74-106 mg/dL Calcium Level 10.0 8.7-10.4 mg/dL Magnesium Level 2.3 1.6-2.6 mg/dL Total Bilirubin 0.4 0.2-1.0 mg/dL Aspartate Amino Transferase (AST) 19 13-40 U/L Alanine Aminotransferase (ALT) 15 7-40 U/L Alkaline Phosphatase 52 46-116 U/L Total Protein 7.4 5.7-8.2 g/dL Albumin 4.7 3.2-4.8 g/dL Assessment Multiple sclerosis, clinically not very convincing Multiple sclerosis exacerbation, clinically not very convincing Plan/Recommendation Monitoring Supportive treatment Telemetry MRI brain with and without MRI C-spine with and without IV Solu-Medrol 1000 mg daily x 5 GI prophylaxis DVT prophylaxis Up to chair Physical therapy More recommendation per clinical course Prognosis: Poor This medical document was created using an electronic medical record system with [employer] dictation system. Although this document has been carefully reviewed, there may still be some phonetic and typographical errors. These areas are purely typographical due to imperfections of the software programs, and do not reflect any compromise in the patient's medical care. Plan discussed with: Patient, Other ANA MARÍA CHACKO MD May 16, 2024 19:57
[2024-05-16] MEDS: methylPREDNISolone SOD SUCC 125 MG/2 ML VL IV ONE (20:20)
[2024-05-16 20:57] VITALS: BP 108/58; PULSE 75; RESP 16; TEMP 97.2; O2SAT 96
[2024-05-16] MEDS ORDERED: methylPREDNISolone SOD SUCC 40 MG/ML VL IV SCH (22:00)
[2024-05-16] MEDS ORDERED: NITROGLYCERIN 0.4 MG SL TAB SL PRN (22:30)
[2024-05-16] MEDS ORDERED: ONDANSETRON HCL 4 MG/2 ML VIAL IV PRN (22:30)
[2024-05-16] MEDS ORDERED: MORPHINE SULFATE INJ 2 MG/ml SYRG IV PRN (22:30)
[2024-05-16] MEDS ORDERED: DOCUSATE SOD 100 MG CAP PO PRN (22:30)
[2024-05-16] MEDS: methylPREDNISolone SOD SUCC 1,000 MG in SODIUM CHL 0.9% 250 ML IV SCH (22:54)
[2024-05-16] MEDS: ENOXAPARIN SOD 40 MG/0.4 ML SYRINGE SC SCH (23:13)
--- NOTE | 2024-05-17 00:39 | DVHHPRES ---
History of Present Illness Resident Creating Document: SERG WALTERS RESIDENT History of Present Illness KRISS LIMON is a 58 years old female with a PMH of multiple sclerosis, asthma, lower back pain, cervical cancer status post cone surgery presented to the ED with the chief complaints of generalized body pains, jerking and stiffness since 2 days prior to admission. Patient reported she feels like her neck and abdomen is collapsing, associated with jerking, stiffness. Patient believes she she is having MS flare-up. Patient also reported she has been depending on her 2 canes for activities. She denies fever, chest pain, nausea, vomiting, diarrhea, diaphoresis and other associated symptoms Past Medical History multiple sclerosis, asthma, lower back pain, cervical cancer Past Surgical History Cervical cancer status post cone surgery, lower back surgery, appendectomy, hysterectomy Family History Colon cancer in father, diabetes in mom, heart attack in grandmother Past Social History Lives with the son, former smoker (smoked for 25-35 years less than pack per day), former marijuana smoker Review of Systems Constitutional: Yes: Weakness Eyes: No: Pain, Vision change, Conjunctivae inflammation, Eyelid inflammation, Other, Redness ENT: No: Ear pain, Ear discharge, Nose pain, Nose discharge, Nose congestion, Mouth pain, Mouth swelling, Throat pain, Throat swelling, Other Respiratory: No: Cough, Dry, Shortness of breath, SOB with excertion, Wheezing, Hemoptysis, Pleuritic Pain, Sputum, Wheezing, Other Cardiovascular: No: Chest Pain, Palpitations, Orthopnea, Paroxysmal Noc. Dyspnea, Edema, Lt Headedness, Other Gastrointestinal: No: Nausea, Vomiting, Abdominal Pain, Diarrhea, Constipation, Melena, Hematochezia, Other Genitourinary: No Dysuria, No Frequency, No Incontinence, No Hematuria, No Retention, No Other Musculoskeletal: neck pain, shoulder pain, back pain Skin: No: Rash, Lesions, Jaundice, Bruising, Other Neurological: No: Weakness, Numbness, Incoordination, Change in speech, Confusion, Seizures, Other Allergies: Coded Allergies: Penicillins (Verified Allergy, Mild, 12/01/10) Medications Current Medications Medications Dose Ordered Sig/Stephan Route Start Time Stop Time Status Last Admin Dose Admin Methylprednisolone Sodium Succinate 1,000 mg DAILY@2200 IV 05/16/24 22:00 05/20/24 22:01 Cancel Famotidine 40 mg DAILY PO 05/17/24 10:00 Lorazepam 1 mg ONCE PRN IV 05/16/24 21:30 Methylprednisolone Sodium Succinate 1000 mg/Sodium Chloride 250 ml @ 300 mls/hr DAILY@2200 IV 05/16/24 22:00 05/20/24 22:49 05/16/24 22:54 300 MLS/HR Sodium Chloride 10 ml Q8HR IV 05/17/24 06:00 Ondansetron HCl 4 mg Q4HP PRN IV 05/16/24 22:30 Docusate Sodium 100 mg BIDPRN PRN PO 05/16/24 22:30 Acetaminophen 650 mg Q6HP PRN PO 05/16/24 22:30 Morphine Sulfate 2 mg Q4HPRN PRN IV 05/16/24 22:30 Enoxaparin Sodium 40 mg Q24H SC 05/16/24 23:00 05/16/24 23:13 40 MG Nitroglycerin 0.4 mg Q5MINP PRN SL 05/16/24 22:30 Morphine Sulfate 2 mg Q30M PRN IV 05/16/24 22:30 Exam Vital Signs Vital Signs Date Time Temp Pulse Resp B/P (MAP) Pulse Ox O2 Delivery O2 Flow Rate FiO2 05/16/24 22:07 97.6 76 16 122/73 (89) 97 97.6 Exam General Appearance: Alert, Oriented X3, Cooperative, in mild distress HEENT: Atraumatic, Mucous membranes moist/pink Respiratory: Clear to auscultation, Normal air movement, No added sounds Cardiovascular: Regular rate, Normal S1, Normal S2, No murmurs Abdominal: Active bowel sounds, Soft, no distention, no tenderness Extremities: No edema, Normal pulses, No tenderness/swelling Skin: No Significant rash, except past surgical scars Neuro: Normal speech, sensorimotor deficits none Psych/Mental Status: Mental status NL, Mood NL Nurse was there as sharperone during examination Labs/Xrays Labs Test 05/16/24 18:46 05/16/24 16:19 Range/Units Urine Color Light-yellow Yellow Urine Clarity Clear Clear Urine pH 5.5 5.0-9.0 Urine Specific [place] 1.016 1.001-1.035 Urine Protein Negative Negative Urine Ketones Negative Negative Urine Blood Negative Negative /uL Urine Nitrite Negative Negative Urine Bilirubin Negative Negative Urine Urobilinogen Normal Negative mg/dL Urine Leukocyte Esterase Negative Negative /uL Urine RBC 1 0 - 4 /hpf Urine WBC <1 0 - 5 /hpf Urine Squamous Epithelial Cells Few <5 /hpf Urine Bacteria Mod H None Seen /hpf Urine Hyaline Casts Few 0 - 2 /lpf Urine Glucose Normal Normal mg/dL White Blood Count 7.8 4.4-10.8 10^3/uL Red Blood Count 4.65 4.0-5.20 10^6/uL Hemoglobin 14.5 12.2-16.2 g/dL Hematocrit 42.8 36.0-46.0 % Mean Corpuscular Volume 92.0 80.0-100.0 fL Mean Corpuscular Hemoglobin 31.2 28.0-32.0 pg Mean Corpuscular Hemoglobin Concent 33.9 32.0-36.0 g/dL Red Cell Distribution Width 12.6 11.8-14.3 % Platelet Count 192 140-450 10^3/uL Mean Platelet Volume 10.6 6.9-10.8 fL Neutrophils (%) (Auto) 76.4 37.0-80.0 % Lymphocytes (%) (Auto) 16.2 10.0-50.0 % Monocytes (%) (Auto) 5.2 0.0-12.0 % Eosinophils (%) (Auto) 1.6 0.0-7.0 % Basophils (%) (Auto) 0.6 0.0-2.0 % Neutrophils # (Auto) 6.0 1.6-8.6 10 ^3/uL Lymphocytes # (Auto) 1.3 0.4-5.4 10 ^3/uL Monocytes # (Auto) 0.4 0-1.3 10 ^3/uL Eosinophils # (Auto) 0.1 0-0.8 10 ^3/uL Basophils # (Auto) 0 0-0.2 10 ^3/uL Nucleated Red Blood Cells 0.1 % Sodium Level 139 136-145 mmol/L Potassium Level 3.7 3.5-5.1 mmol/L Chloride Level 105 98-107 mmol/L Carbon Dioxide Level 26 20-31 mmol/L Anion Gap 8 5-15 Blood Urea Nitrogen 18 9-23 mg/dL Creatinine 0.87 0.550-1.02 mg/dL Glomerular Filtration Rate Calc 77 >90 mL/min BUN/Creatinine Ratio 20.7 H 10.0-20.0 Serum Glucose 109 H 74-106 mg/dL Calcium Level 10.0 8.7-10.4 mg/dL Magnesium Level 2.3 1.6-2.6 mg/dL Total Bilirubin 0.4 0.2-1.0 mg/dL Aspartate Amino Transferase (AST) 19 13-40 U/L Alanine Aminotransferase (ALT) 15 7-40 U/L Alkaline Phosphatase 52 46-116 U/L Total Protein 7.4 5.7-8.2 g/dL Albumin 4.7 3.2-4.8 g/dL Assessment/Plan Assessment/Plan # ? Multiple sclerosis exacerbation -head CT showed no acute intracranial abnormalities -neurology home energy consultant evaluated the patient and advised to MRI and following recommendations -IV Solu-Medrol 1000 mg daily for 5 days, supportive treatment and monitoring -ordered MRI brain and neck with and without contrast, pending -ordered physical therapy # chronic lower back pain -continue home meds Regular diet No GI PPX Lovenox Reconciled home meds Goals of care discussed with the patient for more than 27 minutes: Full code status Case discussed with Dr. Burkett, patient and nurse Plan discussed with: Patient, Other (RN) My Orders Orders - SERG WALTERS RESIDENT Procedure Category Date Status Time Admit ADMIT 05/16/24 Transmitted 22:28 Allergies SRINIVAS 05/16/24 In Process 22:28 Code Status CODE 05/16/24 Transmitted 22:28 Sodium Chloride Lock PHA 05/17/24 In Process (Saline Lock Ns) 06:00 Ondansetron Hcl PHA 05/16/24 In Process (Zofran) 22:30 Docusate Sodium PHA 05/16/24 In Process Capsule (Colace 22:30 Complete Blood Count LAB 05/17/24 Logged 04:00 Comprehensive LAB 05/17/24 Logged Metabolic Panel 04:00 Cardiac DIET 05/17/24 Transmitted Diet-2gna,Lofat,Lochol Breakfast Acetaminophen Tablet PHA 05/16/24 In Process (Tylenol Tablet) 22:30 Morphine Sulfate PHA 05/16/24 In Process Injection 22:30 Enoxaparin Sodium PHA 05/16/24 In Process (Lovenox) 23:00 Nitroglycerin PHA 05/16/24 In Process Sublingual (Ntrostat 22:30 Morphine Sulfate PHA 05/16/24 In Process Injection 22:30 Oxygen By Nasal RT 05/16/24 Transmitted Cannula 22:28 Stat Ekg For Chest SRINIVAS 05/16/24 In Process Pain 22:28 Notify Of Changes SRINIVAS 05/16/24 In Process From Base 22:28 Cold Working Inspector For SRINIVAS 05/16/24 In Process 24 Hours 22:28 Emergency Dysrhythmia SRINIVAS 05/16/24 In Process Protocol 22:28 Rhythm Strips Once SRINIVAS 05/16/24 In Process Every Shift 22:28 Drug Screen LAB 05/17/24 Logged 00:29 Hemoglobin A1c LAB 05/17/24 Logged 00:29 Vitamin D, 25-Hydroxy LAB 05/17/24 Logged 00:29 Vitamin B12 LAB 05/17/24 Logged 00:29 Thyroid Stimulating LAB 05/17/24 Logged Hormone 00:29 Date of Service: May 16, 2024 Billing Provider: LINDA BURKETT MD Common Visit Codes: [id number] INP/OBS CARE (HIGH) SERG WALTERS RESIDENT May 17, 2024 00:39 LINDA BURKETT MD May 17, 2024 09:03
[2024-05-17 01:22] VITALS: BP 112/74; PULSE 79; RESP 18; TEMP 98.2; O2SAT 95
[2024-05-17] MEDS: MORPHINE SULFATE INJ 2 MG/ml SYRG IV PRN (01:29)
[2024-05-17] MEDS: LORazepam 2MG/ML-1ML VIAL IV PRN ×2 (02:24→09:41)
[2024-05-17 04:00] VITALS: PULSE 66; RESP 18; O2SAT 100
[2024-05-17 04:21] VITALS: BP 109/73; PULSE 66; RESP 17; TEMP 97.5; O2SAT 100
[2024-05-17 05:35] LABS: Basophils # (auto) 0 10 ^3/uL (0-0.2); Basophils % (auto) 0.1 % (0.0-2.0); Eosinophils # (auto) 0 10 ^3/uL (0-0.8); Hematocrit 45.2 % (36.0-46.0); Hemoglobin 15.3 g/dL (12.2-16.2); Lymphocytes # (auto) 0.8 10 ^3/uL (0.4-5.4); Lymphocytes % (auto) 10.9 % (10.0-50.0); Mean Corpuscular Hgb Conc. 33.9 g/dL (32.0-36.0); Mean Corpuscular Volume 91.5 fL (80.0-100.0); Monocytes # (auto) 0 10 ^3/uL (0-1.3); Monocytes % (auto) 0.4 % (0.0-12.0); Neutrophils # (auto) 6.1 10 ^3/uL (1.6-8.6); Neutrophils % (auto) 88.6 % (37.0-80.0); Nucleated Red Blood Cells % 0.1 %; Platelet Count (auto) 208 10^3/uL (140-450); Red Blood Cells 4.94 10^6/uL (4.0-5.20); Red Cell Distribution Width 12.5 % (11.8-14.3); White Blood Cell 6.9 10^3/uL (4.4-10.8)
[2024-05-17 05:41] LABS: Alanine Aminotransferase 16 U/L (7-40); Albumin 4.9 g/dL (3.2-4.8); Alkaline Phosphatase 50 U/L (46-116); Anion Gap 11 (5-15); Aspartate Aminotransferase 25 U/L (13-40); BUN/Creatinine Ratio 18.2 (10.0-20.0); Bilirubin, Total 0.5 mg/dL (0.2-1.0); Blood Urea Nitrogen 14 mg/dL (9-23); Calcium 9.8 mg/dL (8.7-10.4); Carbon Dioxide 25 mmol/L (20-31); Chloride 103 mmol/L (98-107); Glucose 160 mg/dL (74-106); Potassium 3.2 mmol/L (3.5-5.1); Sodium 139 mmol/L (136-145); Total Protein 7.6 g/dL (5.7-8.2)
[2024-05-17] MEDS: SODIUM CHLOR 0.9% PF (SALINE LOCK) 10ML VIAL/SYR IV SCH (05:58)
[2024-05-17] MEDS: POTASSIUM EFFERVESENT TAB 25 MEQ PO ONE (06:50)
[2024-05-17 08:30] VITALS: O2SAT 96
--- NOTE | 2024-05-17 09:03 | DVHPN2 ---
Progress Note - Dictate Date Seen: May 17, 2024 Medical Necessity Reason Pt with a Central, PICC or Fol: No Subjective Ms. Carmen is a right-handed female with a history of anxiety, depression, asthma, cervical cancer s/p hysterectomy, she came to the [facility] on 05/16/2024 with a chief company of MS flares up. 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 Mild nonspecific increased or signal and postcontrast enhancement in the disc space at C5-C6. Findings could represent discitis in the appropriate clinical setting. Clinical correlation advised (The intrinsic cervical cord signal appears intact) MRI TSP wwo, 12/04/20: No significant posterior disc disease, central canal or neural foraminal narrowing (The thoracic cord signal and contour appear intact.) MRI LSP wwo, 12/04/20: Multilevel degenerative changes of the spine most severe at L5-S1 LLU info Progressive note, 01/30/15: increased oligoclonal bands, Normal IgG index EEG, 11/14/14: Mildly abnormal EEG MRI head, 10/25/13: Increased FLAITR and T2 lesions. Not felt to be typical of demyelination disease MRI CSP, 09/18/23: Degeneration MRI TSP, 09/17/13: Normal MRI LSP, 09/17/13: Degeneration Urinalysis, 04/29/2024: No UTI CBC, 05/16/2024: Unremarkable CMP, 04/29/2024: Unremarkable TG/HDL/LDL/HDL, 12/2023: 119/189/91/75 CT head, 05/16/24: 1. Negative noncontrast CT of the head unchanged from 03/09/2023. 2. Recommend nonemergent MRI to evaluate for MS plaques which are not apparent on noncontrast CT head vital signs Vital Sign Date Time Temp Pulse Resp B/P (MAP) Pulse Ox O2 Delivery O2 Flow Rate FiO2 05/17/24 08:17 97.6 105 20 120/79 (93) 95 97.6 05/17/24 08:17 Room Air 05/17/24 04:00 0 21 medications Current Medications Medications Dose Ordered Sig/Stephan Route Start Time Stop Time Status Last Admin Dose Admin Methylprednisolone Sodium Succinate 1,000 mg DAILY@2200 IV 05/16/24 22:00 05/20/24 22:01 Cancel Famotidine 40 mg DAILY PO 05/17/24 10:00 Lorazepam 1 mg ONCE PRN IV 05/16/24 21:30 Methylprednisolone Sodium Succinate 1000 mg/Sodium Chloride 250 ml @ 300 mls/hr DAILY@2200 IV 05/16/24 22:00 05/20/24 22:49 05/16/24 22:54 300 MLS/HR Sodium Chloride 10 ml Q8HR IV 05/17/24 06:00 05/17/24 05:58 10 ML Ondansetron HCl 4 mg Q4HP PRN IV 05/16/24 22:30 Docusate Sodium 100 mg BIDPRN PRN PO 05/16/24 22:30 Acetaminophen 650 mg Q6HP PRN PO 05/16/24 22:30 Morphine Sulfate 2 mg Q4HPRN PRN IV 05/16/24 22:30 05/17/24 01:29 2 MG Enoxaparin Sodium 40 mg Q24H SC 05/16/24 23:00 05/16/24 23:13 40 MG Nitroglycerin 0.4 mg Q5MINP PRN SL 05/16/24 22:30 Morphine Sulfate 2 mg Q30M PRN IV 05/16/24 22:30 Lorazepam 1 mg Q6HP PRN IV 05/17/24 02:15 05/17/24 02:24 1 MG objective General: the patient is well developed and nourished. No acute distress. MENTAL STATUS: Awake and alert. Oriented to person, place, time and general circumstances. Able to give personal history SPEECH, LANGUAGE, HIGHER CORTICAL FUNCTION: no aphasia or dysathria. CRANIAL NERVES: Pupils are equal, round and reactive. EOMs full and conjugate. No nystagmus. Facial sensation intact in all three divisions bilaterally. Mandibular strength intact. Facial muscles symmetrical and strength intact. #8: Hearing grossly normal to voice. #9,10: Uvula and soft palate rise in the midline. Swallow and voice are normal. #11: Trapezius and sternomastoid strength intact bilaterally. #12: Tongue midline. No fasciculations or atrophy. SENSATION: Sensation to touch and pinprick is normal. MOTOR: Normal tone in the upper and lower extremity. Normal muscle bulk. No fasciculations. No abnormal movements or posturing. Muscle strength of the major groups in the upper extremities is 5/5. Muscle strength of the major groups in the lower extremities is 5/5. REFLEXES: Deep tendon reflexes are symmetrical. No pathological reflexes. CEREBELLAR/COORDINATION: Finger to nose ise normal bilaterally. GAIT/STATION: deferred. laboratory and microbiology Laboratory Tests 05/17/24 05:05 Test 05/17/24 05:05 Range/Units Serum Glucose 160 H 74-106 mg/dL Problem List Multiple sclerosis, clinically not very convincing Multiple sclerosis exacerbation, clinically not very convincing Assessment/Plan Monitoring Supportive treatment Telemetry MRI brain with and without MRI C-spine with and without IV Solu-Medrol 1000 mg daily x 5 GI prophylaxis DVT prophylaxis Up to chair Physical therapy More recommendation per clinical course This medical document was created using an electronic medical record system with [employer] computerized dictation system. Although this document has been carefully reviewed, there may still be some phonetic and typographical errors. These areas are purely typographical due to imperfections of the software programs, and do not reflect any compromise in the patient's medical care. Prognosis poor Plan discussed with: Patient, Other Total Time (mins): 40 ANA MARÍA CHACKO MD May 17, 2024 09:03
[2024-05-17] MEDS: GADOTERATE MEG 10 MMOL/20ml INJ (0.5MMOL/ml) IV ONE (09:13)
--- NOTE | 2024-05-17 09:15 | DVHPNRES ---
Progress Note Date Seen: May 17, 2024 Resident Creating Document: JAMISON ALMENDAREZ RESIDENT Medical Necessity Reason Pt with a Central, PICC or Fol: No Subjective Patient reports: No new complaints, Feels better Changes from previous H/P or p: No Changes Review of Systems: HEENT:Normal, CVS:Normal, RESPIRATORY:Normal, GI:Normal, :Normal, MSK:Abnormal (weakness. ), NEURO:Abnormal (noted weakness and paresthesis reported. ) Objective vital signs Vital Sign Date Time Temp Pulse Resp B/P (MAP) Pulse Ox O2 Delivery O2 Flow Rate FiO2 05/17/24 08:17 97.6 105 20 120/79 (93) 95 97.6 05/17/24 08:17 Room Air 05/17/24 04:00 0 21 medications Current Medications Medications Dose Ordered Sig/Stephan Route Start Time Stop Time Status Last Admin Dose Admin Methylprednisolone Sodium Succinate 1,000 mg DAILY@2200 IV 05/16/24 22:00 05/20/24 22:01 Cancel Famotidine 40 mg DAILY PO 05/17/24 10:00 Lorazepam 1 mg ONCE PRN IV 05/16/24 21:30 Methylprednisolone Sodium Succinate 1000 mg/Sodium Chloride 250 ml @ 300 mls/hr DAILY@2200 IV 05/16/24 22:00 05/20/24 22:49 05/16/24 22:54 300 MLS/HR Sodium Chloride 10 ml Q8HR IV 05/17/24 06:00 05/17/24 05:58 10 ML Ondansetron HCl 4 mg Q4HP PRN IV 05/16/24 22:30 Docusate Sodium 100 mg BIDPRN PRN PO 05/16/24 22:30 Acetaminophen 650 mg Q6HP PRN PO 05/16/24 22:30 Morphine Sulfate 2 mg Q4HPRN PRN IV 05/16/24 22:30 05/17/24 01:29 2 MG Enoxaparin Sodium 40 mg Q24H SC 05/16/24 23:00 05/16/24 23:13 40 MG Nitroglycerin 0.4 mg Q5MINP PRN SL 05/16/24 22:30 Morphine Sulfate 2 mg Q30M PRN IV 05/16/24 22:30 Lorazepam 1 mg Q6HP PRN IV 05/17/24 02:15 05/17/24 02:24 1 MG Examination The following is the information I obtained [place] [facility] [place]: Severe canal stenosis with mild impingement on the ventral thecal sac at C5-C6. Mild nonspecific increased or signal and postcontrast enhancement in the disc space at C5-C6. Findings could represent discitis in the appropriate clinical setting. Clinical correlation advised (The intrinsic cervical cord signal appears intact) MRI TSP wwo, 12/04/20: No significant posterior disc disease, central canal or neural foraminal narrowing (The thoracic cord signal and contour appear intact.) MRI LSP wwo, 12/04/20: Multilevel degenerative changes of the spine most severe at L5-S1 LLU info Progressive note, 01/30/15: increased oligoclonal bands, Normal IgG index EEG, 11/14/14: Mildly abnormal EEG MRI head, 10/25/13: Increased FLAITR and T2 lesions. Not felt to be typical of demyelination disease MRI CSP, 09/18/23: Degeneration MRI TSP, 09/17/13: Normal MRI LSP, 09/17/13: Degeneration Urinalysis, 04/29/2024: No UTI CBC, 05/16/2024: Unremarkable CMP, 04/29/2024: Unremarkable TG/HDL/LDL/HDL, 12/2023: 119/189/91/75 CT head, 05/16/24: 1. Negative noncontrast CT of the head unchanged from 03/09/2023. 2. Recommend nonemergent MRI to evaluate for MS plaques which are not apparent on noncontrast CT head Examination: GENERAL:Normal, HEENT:Normal, NECK:Normal, LUNGS:Normal (Bilateral clear lungs, no adventitious sound, breathing in room air.), CVS:Normal, ABDOMEN:Normal, MSK:Abnormal (Grossly patient's upper and lower extremity has equal 4/5 strength, no focal neuro deficits/weakness noted.), SKIN:Normal, NEURO:Abnormal (Patient is alert, oriented x3, poor memory, extremely tangential, low frustration tolerance tolerability, anxious affect. (No neck rigidity noted)) laboratory and microbiology Laboratory Tests 05/17/24 05:05 Test 05/17/24 05:05 Range/Units Serum Glucose 160 H 74-106 mg/dL Labs and/or images reviewed: Labs reviewed by me, Image(s) reviewed by me (No neck rigidity noted) Problem List/Assessment/Plan Problem List/Assessment/Plan Hospital Course: Ms Morales, a 58-year-old female with past medical history significant for anxiety, depression, asthma, cervical cancer status post hysterectomy in 2013, appendicectomy, chronic low back pain, secondary progressive multiple sclerosis, came with concern of weakness from the cervical region neck down and concern for MS flare-up . Head CT negative, CXR unremarkable, brain MRI shows no active demyelinating plaque and cervical spine MRI also unremarkable. patient was initially admitted in [facility] [place] in 2016 to 2017, lumbar puncture noted 0 bands concerning for MS Patient is on high-dose methylprednisolone 1000 mg, hemodynamically stable, unremarkable neurological status. Appreciate neurology input , waiting for further input before safe discharge. # Questionable multiple sclerosis exacerbation: Unlikely based on imaging, but has known previous multiple sclerosis so we will wait for Neurology input for safe discharge on home oral steroids. Physical examination unconvincing. No spasticity noted. # Mild hypokalemia 3.2, replenished, check tomorrow repeat BMP. # History of secondary progressive multiple sclerosis: limited history, unclear history but available data as above. need close neurology outpatient follow up and trial of drug Copaxone # History of asthma: no history of smoking, chest bilateral clear, breathing in room air. # chronic back pain: on baclofen 10 mg t.i.d., ibuprofen 800 mg p.r.n. topiramate 25 mg b.i.d. denies any acute pain # essential hypertension: hydrochlorothiazide 25 mg daily, target blood pressure 140/90 or below # anxiety disorder: on alprazolam 0.25 q.a.m.,hydroxyzine 25 mg p.r.n.. # overweight with BMI of 29.6 # History of appendectomy # Acute stroke ruled out. # Generalized weakness: PT / social work help to discharged home. Continue fall precautions. At home patient has wheelchair, Rollator and cane. PCP: Dr. Samira Lerma. Barriers to discharge: patient is apprehensive to the plan of discharge. Waiting for physical therapy and neurology input prior to patient safe discharge. lives at home, apparently isolated from the rest of the family. She has friends and support. Walks with assistive device. Case discussed with Dr. Burkett. Code status: Full code. Complex patient care discussion needed total 39 minutes. Plan discussed with: Patient, Other (Patient is not interested in updating other family members. She has a girlfriend who also has multiple sclerosis and she wished to share with her.) Date of Service: May 17, 2024 Billing Provider: LINDA BURKETT MD Common Visit Codes: [id number] INP/OBS CARE(HIGH) JAMISON ALMENDAREZ RESIDENT May 17, 2024 09:15 LINDA BURKETT MD May 17, 2024 19:58
--- NOTE | 2024-05-17 09:44 | DVH ---
CHEST RADIOGRAPH Indication:Pneumonia Technique: Single frontal view of the chest was obtained Comparison: XY CHEST PORTABLE on DOS: 03/09/23, XY CHEST PORTABLE on DOS: 10/09/22 FINDINGS: Lines and Tubes: None Lungs: No focal consolidation. Pleura: No effusion. No pneumothorax. Cardiomediastinal contours: Unremarkable Bones: No acute osseous abnormality. IMPRESSION: No acute cardiopulmonary disease.
[2024-05-17] MEDS: FAMOTIDINE 20 MG TAB PO SCH (11:01)
--- NOTE | 2024-05-17 11:05 | DVH ---
MRI CERVICAL SPINE CLINICAL HISTORY: MS Comparison: None Technique: Multi planar, multi sequence MR images of the cervical spine with and without intravenous contrast. The patient received 10 cc of Gadavist intravenously. FINDINGS: The cervical spinal cord demonstrates normal caliber and signal. The visualized posterior fossa kelsey nts appear unremarkable. There is no pathologic enhancement. The craniocervical junction is within no rmal limits. The vertebral body heights and bone marrow signal are appropriate. There is mild reversa l of the cervical lordosis. There is disc desiccation throughout. There is multilevel disc space narr owing, worst at C5-C6 and C6-C7. At C2-C3 and C3-C4 there is no significant disc herniation. There is no spinal canal or neural laverne inal stenosis. At C4-C5 there is disc bulge and bilateral uncovertebral and facet arthropathy. There is no canal st enosis. There is moderate left and mild right foraminal stenosis. At C5-C6 there is posterior disc osteophyte complex eccentric to the left. There is bilateral uncover tebral arthropathy, [id number]-right. There is no canal stenosis. There is moderate left and m [id number] right foraminal stenosis. At C6-C7 there is mild posterior disc osteophyte complex and bilateral uncovertebral arthropathy. The re is no canal stenosis. There is mild bilateral foraminal stenosis. At C7-T1 there is minimal disc bulge without canal or significant foraminal stenosis. IMPRESSION: 1. The cervical spinal cord demonstrates normal caliber and signal without pathologic enhancement. 2. Mild reversal of the cervical lordosis with multilevel degenerative changes as described by levels above. HS:Y
--- NOTE | 2024-05-17 11:14 | DVH ---
MRI BRAIN WITH AND WITHOUT CONTRAST CLINICAL HISTORY: MS TECHNIQUE: Multiplanar multisequence images were obtained prior to and following intravenous administration of c ontrast. 10/10 cc of gadavist contrast from a prefilled syringe was administered intravenously. Comparison: CT head 05/16/2024 FINDINGS: There is no restricted diffusion. There are scattered small hyperintense T2/FLAIR foci seen in the bi lateral cerebral white matter compatible with demyelinating plaques. There are no obvious plaque seen in the infratentorial white matter. There is no significant callosal atrophy. There is no pathologic enhancement. There is no evidence of hemorrhage, mass, mass effect or midline shift. There is no hydrocephalus or extra-axial fluid collection. The visualized intracranial vasculature demonstrates appropriate flow-v oids. The craniocervical junction is within normal limits. The calvarium demonstrates normal marrow signal. The paranasal sinuses and mastoid air cells are clear. IMPRESSION: 1. Scattered nonenhancing hyperintense T2/FLAIR demyelinating plaques in the supratentorial white mat ter. There is no evidence of an active plaque. Comparison with any available MR brain studies is filomena mmended to evaluate disease progression. HS:Y
[2024-05-17 12:03] LABS: COVID19 ANTIGEN SOFIA FIA NEGATIVE (NEGATIVE)
[2024-05-17] MEDS ORDERED: ALPR0.254 PO (15:40)
[2024-05-17] MEDS ORDERED: VIBE75TA PO (15:43)
[2024-05-17] MEDS ORDERED: IBUP-1456 PO (15:43)
[2024-05-17] MEDS ORDERED: HYDR-3682 PO (15:43)
[2024-05-17] MEDS ORDERED: BACL20TA PO (15:43)
[2024-05-17] MEDS ORDERED: HYDR12.59 PO (15:44)
[2024-05-17] MEDS: ACETAMINOPHEN 325 MG TAB PO PRN (15:54)
[2024-05-17 19:30] LABS: Chloride 107 mmol/L (98-107); Potassium 3.7 mmol/L (3.5-5.1); Sodium 139 mmol/L (136-145)
[2024-05-17 19:31] LABS: Anion Gap 5 (5-15); Calcium 9.9 mg/dL (8.7-10.4); Carbon Dioxide 27 mmol/L (20-31)
[2024-05-17 19:36] LABS: BUN/Creatinine Ratio 17.5 (10.0-20.0); Blood Urea Nitrogen 14 mg/dL (9-23); Glucose 145 mg/dL (74-106)
[2024-05-17 19:45] LABS: Amphetamine Screen, Urine Neg (NEGATIVE); Barbiturate Scree,Urine Neg (NEGATIVE); Benzodiazephine Screen, Urine Neg (NEGATIVE)
[2024-05-17 19:46] LABS: Cannabinoid Screen, Urine Neg (NEGATIVE); Cocaine Screen, Urine Neg (NEGATIVE); Opiate Scree,Urine Neg (NEGATIVE); Phencyclidine Screen, Urine Neg (NEGATIVE)
[2024-05-18] VITALS (7 sets, daily range): BP systolic 96–130; BP diastolic 52–81; PULSE 83–98; RESP 18–21; TEMP 97.4–98.4; O2SAT 91–97
[2024-05-18] MEDS: PANTOPRAZOLE 40 MG TAB PO SCH (06:33)
--- NOTE | 2024-05-18 08:56 | DVHDSRES ---
Discharge Summary Date of Admission Resident Creating Document: JAMISON ALMENDAREZ RESIDENT May 16, 2024 at 22:28 Labs/Diagnostic Data: Laboratory Results Test 05/17/24 19:18 05/17/24 18:46 05/17/24 11:33 05/17/24 05:05 Urine Opiates Screen Neg (NEGATIVE) Urine Fentanyl Screen Neg (NEGATIVE) Urine Barbiturates Screen Neg (NEGATIVE) Urine Phencyclidine Screen Neg (NEGATIVE) Urine Amphetamines Screen Neg (NEGATIVE) Urine Benzodiazepines Screen Neg (NEGATIVE) Urine Cocaine Screen Neg (NEGATIVE) Urine Cannabinoids Screen Neg (NEGATIVE) Sodium Level 139 mmol/L (136-145) Potassium Level 3.7 mmol/L (3.5-5.1) Chloride Level 107 mmol/L (98-107) Carbon Dioxide Level 27 mmol/L (20-31) Anion Gap 5 (5-15) Blood Urea Nitrogen 14 mg/dL (9-23) Creatinine 0.80 mg/dL (0.550-1.02) Glomerular Filtration Rate Calc 85 mL/min (>90) BUN/Creatinine Ratio 17.5 (10.0-20.0) Serum Glucose 145 mg/dL (74-106) Calcium Level 9.9 mg/dL (8.7-10.4) SARS-CoV-2 Antigen (Rapid) Negative (NEGATIVE) White Blood Count 6.9 10^3/uL (4.4-10.8) Red Blood Count 4.94 10^6/uL (4.0-5.20) Hemoglobin 15.3 g/dL (12.2-16.2) Hematocrit 45.2 % (36.0-46.0) Mean Corpuscular Volume 91.5 fL (80.0-100.0) Mean Corpuscular Hemoglobin 31.0 pg (28.0-32.0) Mean Corpuscular Hemoglobin Concent 33.9 g/dL (32.0-36.0) Red Cell Distribution Width 12.5 % (11.8-14.3) Platelet Count 208 10^3/uL (140-450) Mean Platelet Volume 11.1 fL (6.9-10.8) Neutrophils (%) (Auto) 88.6 % (37.0-80.0) Lymphocytes (%) (Auto) 10.9 % (10.0-50.0) Monocytes (%) (Auto) 0.4 % (0.0-12.0) Eosinophils (%) (Auto) 0.0 % (0.0-7.0) Basophils (%) (Auto) 0.1 % (0.0-2.0) Neutrophils # (Auto) 6.1 10 ^3/uL (1.6-8.6) Lymphocytes # (Auto) 0.8 10 ^3/uL (0.4-5.4) Monocytes # (Auto) 0 10 ^3/uL (0-1.3) Eosinophils # (Auto) 0 10 ^3/uL (0-0.8) Basophils # (Auto) 0 10 ^3/uL (0-0.2) Nucleated Red Blood Cells 0.1 % Hemoglobin A1c 5.6 % A1C (<5.7) Total Bilirubin 0.5 mg/dL (0.2-1.0) Aspartate Amino Transferase (AST) 25 U/L (13-40) Alanine Aminotransferase (ALT) 16 U/L (7-40) Alkaline Phosphatase 50 U/L (46-116) Total Protein 7.6 g/dL (5.7-8.2) Albumin 4.9 g/dL (3.2-4.8) Vitamin B12 Level 422 pg/mL (211-911) Vitamin D 25-Hydroxy 72.2 ng/mL (30.0-100) Thyroid Stimulating Hormone (TSH) 1.22 uIU/mL (0.55-4.78) Test 05/16/24 18:46 05/16/24 16:19 Urine Color Light-yellow (Yellow) Urine Clarity Clear (Clear) Urine pH 5.5 (5.0-9.0) Urine Specific [place] 1.016 (1.001-1.035) Urine Protein Negative (Negative) Urine Ketones Negative (Negative) Urine Blood Negative /uL (Negative) Urine Nitrite Negative (Negative) Urine Bilirubin Negative (Negative) Urine Urobilinogen Normal mg/dL (Negative) Urine Leukocyte Esterase Negative /uL (Negative) Urine RBC 1 /hpf (0 - 4) Urine WBC <1 /hpf (0 - 5) Urine Squamous Epithelial Cells Few /hpf (<5) Urine Bacteria Mod /hpf (None Seen) Urine Hyaline Casts Few /lpf (0 - 2) Urine Glucose Normal mg/dL (Normal) Magnesium Level 2.3 mg/dL (1.6-2.6) Other Laboratory Tests 05/17/24 18:46 05/17/24 05:05 Discharge Statement: "Patient was advised to return to the ER or call 911 if any headaches, dizziness, shortness of breath, chest pain, abdominal pain, bleeding, fevers, or worsening of medical condition. Patient was counseled about treatment plan, medications, possible side effects, patientverbalized understanding. All questions were answered to the best of my ability. This discharge took greater then 30 minutes in planning, reviewing documentation, counseling the patient, and discussing with other team members." ASSESSMENT ASSESSMENT Assessment JAMISON ALMENDAREZ RESIDENT May 18, 2024 08:56
[2024-05-18] MEDS ORDERED: TOPIRAMATE 25 MG TAB PO SCH (12:00)
[2024-05-18] MEDS: TOPIRAMATE 25 MG TAB PO SCH (12:19)
--- NOTE | 2024-05-18 18:16 | DVHPNRES ---
Progress Note Date Seen: May 18, 2024 Resident Creating Document: JAMISON ALMENDAREZ RESIDENT Medical Necessity Reason Pt with a Central, PICC or Fol: No Subjective Review of Systems Patient is subjectively feeling better, less weakness although disproportionate physical exam. On asking patient is not able to tell why she is not on any multiple sclerosis maintenance medications. Patient reports: No new complaints, Feels better Changes from previous H/P or p: No Changes Review of Systems: HEENT:Normal, CVS:Normal, RESPIRATORY:Normal, GI:Normal, :Normal, MSK:Abnormal (Weakness improving as per patient), NEURO:Abnormal (Tangential, memory deficits, headache without neuro deficits, mood flat,) Objective vital signs Vital Sign Date Time Temp Pulse Resp B/P (MAP) Pulse Ox O2 Delivery O2 Flow Rate FiO2 05/18/24 17:36 98.4 95 18 123/75 (91) 97 98.4 05/18/24 08:20 Room Air* 0 21 Total Intake and Output 05/17/24 05/17/24 05/18/24 15:00 23:00 07:00 Intake Total 250 ml Balance 250 ml medications Current Medications Medications Dose Ordered Sig/Stephan Route Start Time Stop Time Status Last Admin Dose Admin Methylprednisolone Sodium Succinate 1,000 mg DAILY@2200 IV 05/16/24 22:00 05/20/24 22:01 Cancel Lorazepam 1 mg ONCE PRN IV 05/16/24 21:30 05/17/24 09:41 1 MG Methylprednisolone Sodium Succinate 1000 mg/Sodium Chloride 250 ml @ 300 mls/hr DAILY@2200 IV 05/16/24 22:00 05/20/24 22:49 05/18/24 00:20 300 MLS/HR Sodium Chloride 10 ml Q8HR IV 05/17/24 06:00 05/18/24 14:00 10 ML Ondansetron HCl 4 mg Q4HP PRN IV 05/16/24 22:30 Docusate Sodium 100 mg BIDPRN PRN PO 05/16/24 22:30 Acetaminophen 650 mg Q6HP PRN PO 05/16/24 22:30 05/17/24 21:40 650 MG Morphine Sulfate 2 mg Q4HPRN PRN IV 05/16/24 22:30 05/17/24 01:29 2 MG Enoxaparin Sodium 40 mg Q24H SC 05/16/24 23:00 05/18/24 00:19 40 MG Nitroglycerin 0.4 mg Q5MINP PRN SL 05/16/24 22:30 Morphine Sulfate 2 mg Q30M PRN IV 05/16/24 22:30 Lorazepam 1 mg Q6HP PRN IV 05/17/24 02:15 05/18/24 06:33 1 MG Pantoprazole Sodium 40 mg DAILY@0600 PO 05/18/24 06:00 05/18/24 06:33 40 MG Topiramate 25 mg BID PO 05/18/24 12:00 05/18/24 12:19 25 MG Examination The following is the information I obtained from out of facility [facility] MRI CSP wwo, 12/04/20: Severe canal stenosis with mild impingement on the ventral thecal sac at C5-C6. Mild nonspecific increased or signal and postcontrast enhancement in the disc space at C5-C6. Findings could represent discitis in the appropriate clinical setting. Clinical correlation advised (The intrinsic cervical cord signal appears intact) MRI TSP wwo, 12/04/20: No significant posterior disc disease, central canal or neural foraminal narrowing (The thoracic cord signal and contour appear intact.) MRI LSP wwo, 12/04/20: Multilevel degenerative changes of the spine most severe at L5-S1 LLU info Progressive note, 01/30/15: increased oligoclonal bands, Normal IgG index EEG, 11/14/14: Mildly abnormal EEG MRI head, 10/25/13: Increased FLAITR and T2 lesions. Not felt to be typical of demyelination disease MRI CSP, 09/18/23: Degeneration MRI TSP, 09/17/13: Normal MRI LSP, 09/17/13: Degeneration Urinalysis, 04/29/2024: No UTI CBC, 05/16/2024: Unremarkable CMP, 04/29/2024: Unremarkable TG/HDL/LDL/HDL, 12/2023: 119/189/91/75 CT head, 05/16/24: 1. Negative noncontrast CT of the head unchanged from 03/09/2023. 2. Recommend nonemergent MRI to evaluate for MS plaques which are not apparent on noncontrast CT head Examination: GENERAL:Normal, HEENT:Normal, NECK:Normal, LUNGS:Normal (Bilateral clear lungs, no adventitious sound, breathing in room air.), CVS:Normal, ABDOMEN:Normal, MSK:Abnormal (Grossly patient's upper and lower extremity has equal 4/5 strength, no focal neuro deficits/weakness noted.), SKIN:Normal, NEURO:Abnormal (Patient is alert, oriented x3, poor memory, extremely tangential, low frustration tolerance tolerability, anxious affect. (No neck rigidity noted)) laboratory and microbiology Laboratory Tests 05/17/24 18:46 05/17/24 05:05 Test 05/17/24 18:46 Range/Units Serum Glucose 145 H 74-106 mg/dL Labs and/or images reviewed: Labs reviewed by me, Image(s) reviewed by me Problem List/Assessment/Plan Problem List/Assessment/Plan Hospital Course: Ms Morales, a 58-year-old female with past medical history significant for anxiety, depression, asthma, cervical cancer status post hysterectomy in 2013, appendicectomy, chronic low back pain, secondary progressive multiple sclerosis, came with concern of weakness from the cervical region neck down and concern for MS flare-up . Head CT negative, CXR unremarkable, brain MRI shows no active demyelinating plaque and cervical spine MRI also unremarkable. patient was initially admitted in [facility] in 2015 to 2016, lumbar puncture noted 0 bands concerning for MS Patient is on high-dose methylprednisolone 1000 mg, hemodynamically stable, unremarkable neurological status. Appreciate neurology input, waiting for further sw/physical therapy input before safe discharge. # Questionable multiple sclerosis exacerbation: Unlikely based on imaging, but has known previous multiple sclerosis. Physical examination unconvincing. No spasticity noted. Continue IV Solu-Medrol 1000 mg day 3 of 5. # Mild hypokalemia 3.2, replenished. # History of secondary progressive multiple sclerosis: limited history, unclear history but available data as above. need close neurology outpatient follow up and trial of drug Copaxone, patient is bringing further previous workup for a solid 1 understanding. # History of asthma: no history of smoking, chest bilateral clear, breathing in room air. Continue incentive spirometry # chronic back pain: on baclofen 10 mg t.i.d., ibuprofen 800 mg p.r.n. denies any acute pain # migraine headache: topiramate 25 mg b.i.d. # essential hypertension: hydrochlorothiazide 25 mg daily, target blood pressure 140/90 or below # anxiety disorder: on alprazolam 0.25 q.a.m.,hydroxyzine 25 mg p.r.n.. # overweight with BMI of 29.6 # History of appendectomy # Acute stroke ruled out. # Generalized weakness: PT / social work help to discharged home. Continue fall precautions. At home patient has wheelchair, Rollator and cane. PCP: Dr. Samira Lerma. Barriers to discharge: patient is apprehensive to the plan of discharge. Waiting for physical therapy and neurology input prior to patient safe discharge. lives at home, apparently isolated from the rest of the family. She has friends and support. Walks with assistive device. Case discussed with Dr. Burkett. Code status: Full code. Complex patient care discussion needed total 39 minutes. Plan discussed with: Patient, Son, Other (Primary team, RN) My Orders My Orders Orders - JAMISON ALMENDAREZ Procedure Category Date Status Time * Fisher Dip Net CONS 05/17/24 Transmitted Consult Pt Request For Service PT 05/17/24 Logged 18:45 Fall Precautions SRINIVAS 05/17/24 In Process Initiated 18:46 Topiramate (Topamax) PHA 05/18/24 In Process 12:00 Date of Service: May 18, 2024 Billing Provider: LINDA BURKETT MD Common Visit Codes: [id number] INP/OBS CARE(HIGH) JAMISON ALMENDAREZ May 18, 2024 18:16 LINDA BURKETT MD May 19, 2024 12:36
[2024-05-19] VITALS (7 sets, daily range): BP systolic 105–151; BP diastolic 63–81; PULSE 71–89; RESP 16–20; TEMP 97.7–98.2; O2SAT 93–97
--- NOTE | 2024-05-19 09:37 | DVHPNRES ---
Progress Note Date Seen: May 19, 2024 Resident Creating Document: JAMISON ALMENDAREZ RESIDENT Medical Necessity Reason Pt with a Central, PICC or Fol: No Subjective Review of Systems Patient is subjectively feeling better, less weakness although disproportionate physical exam. On asking patient is not able to tell why she is not on any multiple sclerosis maintenance medications. today she provided a extensive list of paperwork from previous hospitalizations , making a copy and we will review along with the neurology team. Patient reports: No new complaints, Feels better Changes from previous H/P or p: No Changes Other Systems: HEENT:Normal, CVS:Normal, RESPIRATORY:Normal, GI:Normal, :Normal, MSK:Abnormal (Weakness improving as per patient), NEURO:Abnormal (Tangential, memory deficits, headache without neuro deficits, mood flat,) Objective vital signs Vital Sign Date Time Temp Pulse Resp B/P (MAP) Pulse Ox O2 Delivery O2 Flow Rate FiO2 05/19/24 08:10 71 16 93 Room Air* 0 21 05/19/24 05:00 97.9 116/75 (89) 97.9 Total Intake and Output 05/18/24 05/18/24 05/19/24 15:00 23:00 07:00 Intake Total 800 ml 200 ml Output Total 600 ml Balance 800 ml -400 ml medications Current Medications Medications Dose Ordered Sig/Stephan Route Start Time Stop Time Status Last Admin Dose Admin Methylprednisolone Sodium Succinate 1,000 mg DAILY@2200 IV 05/16/24 22:00 05/20/24 22:01 Cancel Lorazepam 1 mg ONCE PRN IV 05/16/24 21:30 05/17/24 09:41 1 MG Methylprednisolone Sodium Succinate 1000 mg/Sodium Chloride 250 ml @ 300 mls/hr DAILY@2200 IV 05/16/24 22:00 05/20/24 22:49 05/18/24 21:53 300 MLS/HR Sodium Chloride 10 ml Q8HR IV 05/17/24 06:00 05/19/24 06:11 10 ML Ondansetron HCl 4 mg Q4HP PRN IV 05/16/24 22:30 Docusate Sodium 100 mg BIDPRN PRN PO 05/16/24 22:30 Acetaminophen 650 mg Q6HP PRN PO 05/16/24 22:30 05/19/24 06:11 650 MG Morphine Sulfate 2 mg Q4HPRN PRN IV 05/16/24 22:30 05/17/24 01:29 2 MG Enoxaparin Sodium 40 mg Q24H SC 05/16/24 23:00 05/18/24 21:47 40 MG Nitroglycerin 0.4 mg Q5MINP PRN SL 05/16/24 22:30 Morphine Sulfate 2 mg Q30M PRN IV 05/16/24 22:30 Lorazepam 1 mg Q6HP PRN IV 05/17/24 02:15 05/18/24 06:33 1 MG Pantoprazole Sodium 40 mg DAILY@0600 PO 05/18/24 06:00 05/19/24 06:04 40 MG Topiramate 25 mg BID PO 05/18/24 12:00 05/18/24 21:45 25 MG Examination out of facility [facility] MRI CSP wwo, 12/04/20: Severe canal stenosis with mild impingement on the ventral thecal sac at C5-C6. Mild nonspecific increased or signal and postcontrast enhancement in the disc space at C5-C6. Findings could represent discitis in the appropriate clinical setting. Clinical correlation advised (The intrinsic cervical cord signal appears intact) MRI TSP wwo, 12/04/20: No significant posterior disc disease, central canal or neural foraminal narrowing (The thoracic cord signal and contour appear intact.) MRI LSP wwo, 12/04/20: Multilevel degenerative changes of the spine most severe at L5-S1 LLU info Progressive note, 01/30/15: increased oligoclonal bands, Normal IgG index EEG, 11/14/14: Mildly abnormal EEG MRI head, 10/25/13: Increased FLAITR and T2 lesions. Not felt to be typical of demyelination disease MRI CSP, 09/18/23: Degeneration MRI TSP, 09/17/13: Normal MRI LSP, 09/17/13: Degeneration Urinalysis, 04/29/2024: No UTI CBC, 05/16/2024: Unremarkable CMP, 04/29/2024: Unremarkable TG/HDL/LDL/HDL, 12/2023: 119/189/91/75 CT head, 05/16/24: 1. Negative noncontrast CT of the head unchanged from 03/09/2023. 2. Recommend nonemergent MRI to evaluate for MS plaques which are not apparent on noncontrast CT head GENERAL:Normal, HEENT:Normal, NECK:Normal, LUNGS:Normal (Bilateral clear lungs, no adventitious sound, breathing in room air.), CVS:Normal, ABDOMEN:Normal, MSK:Abnormal (Grossly patient's upper and lower extremity has equal 5/5 strength, no focal neuro deficits/weakness noted.), SKIN:Normal, NEURO:Abnormal (Patient is alert, oriented x3, poor memory, extremely tangential, low frustration tolerance tolerability, anxious affect. (No neck rigidity noted) laboratory and microbiology Laboratory Tests 05/17/24 18:46 05/17/24 05:05 Test 05/17/24 18:46 Range/Units Serum Glucose 145 H 74-106 mg/dL Labs and/or images reviewed: Labs reviewed by me, Image(s) reviewed by me Problem List/Assessment/Plan Problem List/Assessment/Plan Hospital Course: Ms Morales, a 58-year-old female with past medical history significant for anxiety, depression, asthma, cervical cancer status post hysterectomy in 2013, appendicectomy, chronic low back pain, secondary progressive multiple sclerosis, came with concern of weakness from the cervical region neck down and concern for MS flare-up . Head CT negative, CXR unremarkable, brain MRI shows no active demyelinating plaque and cervical spine MRI also unremarkable. patient was initially admitted in [facility] in 2015 to 2016, lumbar puncture noted 0 bands concerning for MS Patient is on high-dose methylprednisolone 1000 mg, hemodynamically stable, unremarkable neurological status. Appreciate neurology input, waiting for further sw/physical therapy input before safe discharge. We will review further workup documents collected with Neurology prior to safe discharge tomorrow. # Questionable multiple sclerosis exacerbation: Unlikely based on imaging, but has known previous multiple sclerosis. Physical examination unconvincing. No spasticity noted. Continue IV Solu-Medrol 1000 mg day 4 of 5. IV steroid Finishing tomorrow. # Mild hypokalemia: 3.2, replenished, resolved # History of secondary progressive multiple sclerosis: limited history, unclear history but available data as above. need close neurology outpatient follow up and trial of drug Copaxone, patient is bringing further previous workup for a solid 1 understanding. # History of asthma: no history of smoking, chest bilateral clear, breathing in room air. Continue incentive spirometry # chronic back pain: on baclofen 10 mg t.i.d., ibuprofen 800 mg p.r.n. denies any acute pain # migraine headache: topiramate 25 mg b.i.d. # essential hypertension: hydrochlorothiazide 25 mg daily, target blood pressure 140/90 or below # anxiety disorder: on alprazolam 0.25 q.a.m.,hydroxyzine 25 mg p.r.n.. # overweight with BMI of 29.6 # History of appendectomy # Acute stroke ruled out. # Generalized weakness: PT / social work help to discharged home. Continue fall precautions. At home patient has wheelchair, Rollator and cane. Patient is walking freely by herself although keeps complaining of weakness. PCP: Dr. Samira Lerma. Barriers to discharge: Patient is apprehensive to the plan of discharge, demanding for MS acute on chronic treatment . Waiting for physical therapy and neurology input prior to patient safe discharge. lives at home, apparently isolated from the rest of the family. She has friends and support. Walks with assistive device. Case discussed with Dr. Martínez Code status: Full code. Care planning needed 39 minutes of complex discussion. Plan discussed with: Patient, Other (Primary team, RN.) My Orders My Orders Orders - JAMISON ALMENDAREZ RESIDENT Procedure Category Date Status Time Topiramate (Topamax) PHA 05/18/24 In Process 12:00 Incentive Spirometry ORDERS 05/18/24 Transmitted Q 1hr 18:07 Laboratory Results Laboratory Tests 05/17/24 05:05 05/17/24 18:46 Urinalysis Test 05/16/24 18:46 Urine Color Light-yellow (Yellow) Urine Clarity Clear (Clear) Urine pH 5.5 (5.0-9.0) Urine Specific [place] 1.016 (1.001-1.035) Urine Protein Negative (Negative) Urine Ketones Negative (Negative) Urine Blood Negative /uL (Negative) Urine Nitrite Negative (Negative) Urine Bilirubin Negative (Negative) Urine Urobilinogen Normal mg/dL (Negative) Urine Leukocyte Esterase Negative /uL (Negative) Urine RBC 1 /hpf (0 - 4) Urine WBC <1 /hpf (0 - 5) Urine Squamous Epithelial Cells Few /hpf (<5) Urine Bacteria Mod /hpf (None Seen) H Urine Hyaline Casts Few /lpf (0 - 2) Urine Glucose Normal mg/dL (Normal) Date of Service: May 19, 2024 Billing Provider: HESHAM MARTÍNEZ MD Common Visit Codes: [id number] INP/OBS CARE(HIGH) JAMISON ALMENDAREZ RESIDENT May 19, 2024 09:37 HESHAM MARTÍNEZ MD May 19, 2024 21:12
[2024-05-20 01:00] VITALS: BP 109/67; PULSE 74; RESP 19; TEMP 97.4; O2SAT 96
[2024-05-20 05:00] VITALS: BP 134/85; PULSE 79; RESP 18; TEMP 97.5; O2SAT 96
[2024-05-20 09:00] VITALS: BP 137/76; PULSE 98; RESP 20; TEMP 97.8; O2SAT 92
[2024-05-20 13:40] VITALS: BP 136/83; PULSE 90; RESP 20; TEMP 98.1; O2SAT 94
--- NOTE | 2024-05-20 15:18 | DVHPNRES ---
Progress Note Date Seen: May 20, 2024 Resident Creating Document: DIVINE LEWIS RESIDENT Medical Necessity Reason Pt with a Central, PICC or Fol: No Subjective Review of Systems Patient is subjectively feeling better, less weakness although disproportionate physical exam. On asking patient is not able to tell why she is not on any multiple sclerosis maintenance medications. today she provided a extensive list of paperwork from previous hospitalizations , making a copy and we will review along with the neurology team. Patient reports: No new complaints, Feels better Changes from previous H/P or p: No Changes Other Systems: HEENT:Normal, CVS:Normal, RESPIRATORY:Normal, GI:Normal, :Normal, MSK:Abnormal (Weakness improving as per patient), NEURO:Abnormal (Tangential, memory deficits, headache without neuro deficits, mood flat,) Objective vital signs Vital Sign Date Time Temp Pulse Resp B/P (MAP) Pulse Ox O2 Delivery O2 Flow Rate FiO2 05/20/24 13:40 98.1 90 20 136/83 (100) 94 98.1 05/20/24 08:16 Room Air* 0 21 Total Intake and Output 05/19/24 05/19/24 05/20/24 15:00 23:00 07:00 Intake Total 570 ml 450 ml Output Total 550 ml Balance 20 ml 450 ml medications Current Medications Medications Dose Ordered Sig/Stephan Route Start Time Stop Time Status Last Admin Dose Admin Methylprednisolone Sodium Succinate 1,000 mg DAILY@2200 IV 05/16/24 22:00 05/20/24 22:01 Cancel Lorazepam 1 mg ONCE PRN IV 05/16/24 21:30 05/17/24 09:41 1 MG Methylprednisolone Sodium Succinate 1000 mg/Sodium Chloride 250 ml @ 300 mls/hr DAILY@2200 IV 05/16/24 22:00 05/20/24 22:49 05/19/24 21:36 300 MLS/HR Sodium Chloride 10 ml Q8HR IV 05/17/24 06:00 05/20/24 13:34 10 ML Ondansetron HCl 4 mg Q4HP PRN IV 05/16/24 22:30 Docusate Sodium 100 mg BIDPRN PRN PO 05/16/24 22:30 Acetaminophen 650 mg Q6HP PRN PO 05/16/24 22:30 05/20/24 13:33 650 MG Morphine Sulfate 2 mg Q4HPRN PRN IV 05/16/24 22:30 05/17/24 01:29 2 MG Enoxaparin Sodium 40 mg Q24H SC 05/16/24 23:00 05/19/24 21:36 40 MG Nitroglycerin 0.4 mg Q5MINP PRN SL 05/16/24 22:30 Morphine Sulfate 2 mg Q30M PRN IV 05/16/24 22:30 Lorazepam 1 mg Q6HP PRN IV 05/17/24 02:15 05/18/24 06:33 1 MG Pantoprazole Sodium 40 mg DAILY@0600 PO 05/18/24 06:00 05/20/24 05:49 40 MG Topiramate 25 mg BID PO 05/18/24 12:00 05/20/24 09:23 25 MG Examination [facility] [place] MRI CSP wwo, 12/04/20: Severe canal stenosis with mild impingement on the ventral thecal sac at C5-C6. Mild nonspecific increased or signal and postcontrast enhancement in the disc space at C5-C6. Findings could represent discitis in the appropriate clinical setting. Clinical correlation advised (The intrinsic cervical cord signal appears intact) MRI TSP wwo, 12/04/20: No significant posterior disc disease, central canal or neural foraminal narrowing (The thoracic cord signal and contour appear intact.) MRI LSP wwo, 12/04/20: Multilevel degenerative changes of the spine most severe at L5-S1 LLU info Progressive note, 01/30/15: increased oligoclonal bands, Normal IgG index EEG, 11/14/14: Mildly abnormal EEG MRI head, 10/25/13: Increased FLAITR and T2 lesions. Not felt to be typical of demyelination disease MRI CSP, 09/18/23: Degeneration MRI TSP, 09/17/13: Normal MRI LSP, 09/17/13: Degeneration Urinalysis, 04/29/2024: No UTI CBC, 05/16/2024: Unremarkable CMP, 04/29/2024: Unremarkable TG/HDL/LDL/HDL, 12/2023: 119/189/91/75 CT head, 05/16/24: 1. Negative noncontrast CT of the head unchanged from 03/09/2023. 2. Recommend nonemergent MRI to evaluate for MS plaques which are not apparent on noncontrast CT head GENERAL:Normal, HEENT:Normal, NECK:Normal, LUNGS:Normal (Bilateral clear lungs, no adventitious sound, breathing in room air.), CVS:Normal, ABDOMEN:Normal, MSK:Abnormal (Grossly patient's upper and lower extremity has equal 5/5 strength, no focal neuro deficits/weakness noted.), SKIN:Normal, NEURO:Abnormal (Patient is alert, oriented x3, poor memory, extremely tangential, low frustration tolerance tolerability, anxious affect. (No neck rigidity noted) laboratory and microbiology Laboratory Tests 05/17/24 18:46 05/17/24 05:05 Test 05/17/24 18:46 Range/Units Serum Glucose 145 H 74-106 mg/dL Problem List/Assessment/Plan Problem List/Assessment/Plan Ms Morales, a 58-year-old female with past medical history significant for anxiety, depression, asthma, cervical cancer status post hysterectomy in 2013, appendicectomy, chronic low back pain, secondary progressive multiple sclerosis, came with concern of weakness from the cervical region neck down and concern for MS flare-up . Head CT negative, CXR unremarkable, brain MRI shows no active demyelinating plaque and cervical spine MRI also unremarkable. patient was initially admitted in [facility] in 2015 to 2016, lumbar puncture noted 0 bands concerning for MS Patient is on high-dose methylprednisolone 1000 mg, hemodynamically stable, unremarkable neurological status. Appreciate neurology input, waiting for further sw/physical therapy input before safe discharge. We will review further workup documents collected with Neurology prior to safe discharge tomorrow. # Questionable multiple sclerosis exacerbation: Unlikely based on imaging, but has known previous multiple sclerosis. Physical examination unconvincing. No spasticity noted. Continue IV Solu-Medrol 1000 mg day 4 of 5. IV steroid Finishing tomorrow. # Mild hypokalemia: 3.2, replenished, resolved # History of secondary progressive multiple sclerosis: limited history, unclear history but available data as above. need close neurology outpatient follow up and trial of drug Copaxone, patient is bringing further previous workup for a solid 1 understanding. # History of asthma: no history of smoking, chest bilateral clear, breathing in room air. Continue incentive spirometry # chronic back pain: on baclofen 10 mg t.i.d., ibuprofen 800 mg p.r.n. denies any acute pain # migraine headache: topiramate 25 mg b.i.d. # essential hypertension: hydrochlorothiazide 25 mg daily, target blood pressure 140/90 or below # anxiety disorder: on alprazolam 0.25 q.a.m.,hydroxyzine 25 mg p.r.n.. # overweight with BMI of 29.6 # History of appendectomy # Acute stroke ruled out. # Generalized weakness: PT / social work help to discharged home. Continue fall precautions. At home patient has wheelchair, Rollator and cane. Patient is walking freely by herself although keeps complaining of weakness. PCP: Dr. Samira Lerma. Barriers to discharge: Patient is apprehensive to the plan of discharge, demanding for MS acute on chronic treatment . Waiting for physical therapy and neurology input prior to patient safe discharge. lives at home, apparently isolated from the rest of the family. She has friends and support. Walks with assistive device. Case discussed with Dr. Martínez Plan discussed with: Patient, Other (RN) Date of Service: May 20, 2024 Billing Provider: HESHAM MARTÍNEZ MD Common Visit Codes: [id number] INP/OBS CARE(HIGH) DIVINE LEWIS RESIDENT May 20, 2024 15:18 HESHAM MARTÍNEZ MD May 21, 2024 20:48
[2024-05-20 17:30] VITALS: BP 112/61; PULSE 79; RESP 20; TEMP 97.8; O2SAT 97
[2024-05-20] MEDS: BACLOFEN 10 MG TAB PO PRN (17:44)
[2024-05-20 21:00] VITALS: BP 123/95; PULSE 80; RESP 18; TEMP 98; O2SAT 95
[2024-05-21 01:00] VITALS: BP 112/65; PULSE 76; RESP 18; TEMP 97.7; O2SAT 95
[2024-05-21 05:00] VITALS: BP 125/86; PULSE 80; RESP 20; O2SAT 97
[2024-05-21] MEDS ORDERED: VENL25TA PO (07:33)
[2024-05-21] MEDS ORDERED: ERGO1CAP12 PO (07:33)
[2024-05-21] MEDS ORDERED: BACL10TA PO (07:33)
[2024-05-21] MEDS ORDERED: AMIT-238 PO (07:33)
--- NOTE | 2024-05-21 07:49 | DVHDSRES ---
Discharge Summary Date of Admission Resident Creating Document: DIVINE LEWIS RESIDENT May 16, 2024 at 22:28 Date of Discharge: May 21, 2024 Admitting Diagnosis Concern for multiple sclerosis acute lesion Labs/Diagnostic Data: Laboratory Results Test 05/17/24 19:18 05/17/24 18:46 05/17/24 11:33 05/17/24 05:05 Urine Opiates Screen Neg (NEGATIVE) Urine Fentanyl Screen Neg (NEGATIVE) Urine Barbiturates Screen Neg (NEGATIVE) Urine Phencyclidine Screen Neg (NEGATIVE) Urine Amphetamines Screen Neg (NEGATIVE) Urine Benzodiazepines Screen Neg (NEGATIVE) Urine Cocaine Screen Neg (NEGATIVE) Urine Cannabinoids Screen Neg (NEGATIVE) Sodium Level 139 mmol/L (136-145) Potassium Level 3.7 mmol/L (3.5-5.1) Chloride Level 107 mmol/L (98-107) Carbon Dioxide Level 27 mmol/L (20-31) Anion Gap 5 (5-15) Blood Urea Nitrogen 14 mg/dL (9-23) Creatinine 0.80 mg/dL (0.550-1.02) Glomerular Filtration Rate Calc 85 mL/min (>90) BUN/Creatinine Ratio 17.5 (10.0-20.0) Serum Glucose 145 mg/dL (74-106) Calcium Level 9.9 mg/dL (8.7-10.4) SARS-CoV-2 Antigen (Rapid) Negative (NEGATIVE) White Blood Count 6.9 10^3/uL (4.4-10.8) Red Blood Count 4.94 10^6/uL (4.0-5.20) Hemoglobin 15.3 g/dL (12.2-16.2) Hematocrit 45.2 % (36.0-46.0) Mean Corpuscular Volume 91.5 fL (80.0-100.0) Mean Corpuscular Hemoglobin 31.0 pg (28.0-32.0) Mean Corpuscular Hemoglobin Concent 33.9 g/dL (32.0-36.0) Red Cell Distribution Width 12.5 % (11.8-14.3) Platelet Count 208 10^3/uL (140-450) Mean Platelet Volume 11.1 fL (6.9-10.8) Neutrophils (%) (Auto) 88.6 % (37.0-80.0) Lymphocytes (%) (Auto) 10.9 % (10.0-50.0) Monocytes (%) (Auto) 0.4 % (0.0-12.0) Eosinophils (%) (Auto) 0.0 % (0.0-7.0) Basophils (%) (Auto) 0.1 % (0.0-2.0) Neutrophils # (Auto) 6.1 10 ^3/uL (1.6-8.6) Lymphocytes # (Auto) 0.8 10 ^3/uL (0.4-5.4) Monocytes # (Auto) 0 10 ^3/uL (0-1.3) Eosinophils # (Auto) 0 10 ^3/uL (0-0.8) Basophils # (Auto) 0 10 ^3/uL (0-0.2) Nucleated Red Blood Cells 0.1 % Hemoglobin A1c 5.6 % A1C (<5.7) Total Bilirubin 0.5 mg/dL (0.2-1.0) Aspartate Amino Transferase (AST) 25 U/L (13-40) Alanine Aminotransferase (ALT) 16 U/L (7-40) Alkaline Phosphatase 50 U/L (46-116) Total Protein 7.6 g/dL (5.7-8.2) Albumin 4.9 g/dL (3.2-4.8) Vitamin B12 Level 422 pg/mL (211-911) Vitamin D 25-Hydroxy 72.2 ng/mL (30.0-100) Thyroid Stimulating Hormone (TSH) 1.22 uIU/mL (0.55-4.78) Test 05/16/24 18:46 05/16/24 16:19 Urine Color Light-yellow (Yellow) Urine Clarity Clear (Clear) Urine pH 5.5 (5.0-9.0) Urine Specific [place] 1.016 (1.001-1.035) Urine Protein Negative (Negative) Urine Ketones Negative (Negative) Urine Blood Negative /uL (Negative) Urine Nitrite Negative (Negative) Urine Bilirubin Negative (Negative) Urine Urobilinogen Normal mg/dL (Negative) Urine Leukocyte Esterase Negative /uL (Negative) Urine RBC 1 /hpf (0 - 4) Urine WBC <1 /hpf (0 - 5) Urine Squamous Epithelial Cells Few /hpf (<5) Urine Bacteria Mod /hpf (None Seen) Urine Hyaline Casts Few /lpf (0 - 2) Urine Glucose Normal mg/dL (Normal) Magnesium Level 2.3 mg/dL (1.6-2.6) Other Laboratory Tests 05/17/24 18:46 05/17/24 05:05 Brief Hx & Hospital Course: Hospital Course: Ms Limon, a 58-year-old female with past medical history significant for anxiety, depression, asthma, cervical cancer status post hysterectomy in 2013, appendicectomy, chronic low back pain, secondary progressive multiple sclerosis, came with concern of weakness from the cervical region neck down and concern for MS flare-up . Head CT negative, CXR unremarkable, brain MRI shows no active demyelinating plaque and cervical spine MRI also unremarkable. patient was initially admitted in [facility] in 2016 to 2017, lumbar puncture noted 0 bands concerning for MS Patient is on high-dose methylprednisolone 1000 mg, hemodynamically stable, unremarkable neurological status. Patient had more than 40+ physician evaluation, reviewed the wide bulk of workup and documentation provided by the patient as much as possible. Patient is discharged home lives at home, apparently isolated from the rest of the family. She has friends and support. Walks with assistive device. Patient wanted to follow up with higher level of care with multiple sclerosis specialist neurologist in the nearby [facility]. Patient is discharged home with the help of family. Medical conditions treated in hospital: # Questionable multiple sclerosis exacerbation , unremarkable MRI /physical exam. Status post Solu-Medrol 5 days. No complaining symptoms. # Mild hypokalemia, resolved # History of secondary progressive multiple sclerosis , patient plans to follow up with the MS specialist # History of asthma as needed treatment. # chronic back pain # migraine headache # essential hypertension # anxiety disorder # overweight with BMI of 29.6 # History of appendectomy # Acute stroke ruled out. # Generalized weakness, improved. # Questionable histrionic personality disorder needs further assessment # questionable Munchausen syndrome needs further assessment PCP: Dr. Samira Lerma. Case discussed with Dr. Schneider. Code status: Full code. Care planning needed 39 minutes of complex discussion. Discharge planning needed total 41 minutes of detailed discussion. Patient agreeable to the plan. Consults/Reason for consult Neurology Operations or Procedures [facility] [place] MRI CSP wwo, 12/04/20: Severe canal stenosis with mild impingement on the ventral thecal sac at C5-C6. Mild nonspecific increased or signal and postcontrast enhancement in the disc space at C5-C6. Findings could represent discitis in the appropriate clinical setting. Clinical correlation advised (The intrinsic cervical cord signal appears intact) MRI TSP wwo, 12/04/20: No significant posterior disc disease, central canal or neural foraminal narrowing (The thoracic cord signal and contour appear intact.) MRI LSP wwo, 12/04/20: Multilevel degenerative changes of the spine most severe at L5-S1 LLU info Progressive note, 01/30/15: increased oligoclonal bands, Normal IgG index EEG, 11/14/14: Mildly abnormal EEG MRI head, 10/25/13: Increased FLAITR and T2 lesions. Not felt to be typical of demyelination disease MRI CSP, 09/18/23: Degeneration MRI TSP, 09/17/13: Normal MRI LSP, 09/17/13: Degeneration Urinalysis, 04/29/2024: No UTI CBC, 05/16/2024: Unremarkable CMP, 04/29/2024: Unremarkable TG/HDL/LDL/HDL, 12/2023: 119/189/91/75 CT head, 05/16/24: 1. Negative noncontrast CT of the head unchanged from 03/09/2023. 2. Recommend nonemergent MRI to evaluate for MS plaques which are not apparent on noncontrast CT head [place] [id number] Ph: [phone] DIAGNOSTIC IMAGING Diagnostic Imaging Report : [id number] Signed PATIENT: KRISS LIMON ACCT: [id number] UNIT: [id number] : 1965 LOC: OVERFLOW ROOM / BED: [address] [place] [address] AGE / SEX: 58 / F ADM STATUS: ADM IN SERVICE 0936 ORDERING PHYSICIAN: ANA MARÍA CHACKO MD PROCEDURE(s): MSC - CERVICAL WITH CONTRAST REASON: ORDER NUMBER(s): [id number], ACCESSION NUMBER(s): [id number] MRI CERVICAL SPINE CLINICAL HISTORY: MS Comparison: None Technique: Multi planar, multi sequence MR images of the cervical spine with and without intravenous contrast. The patient received 10 cc of Gadavist intravenously. FINDINGS: The cervical spinal cord demonstrates normal caliber and signal. The visualized posterior fossa contents appear unremarkable. There is no pathologic enhancement. The craniocervical junction is within normal limits. The vertebral body heights and bone marrow signal are appropriate. There is mild reversal of the cervical lordosis. There is disc desiccation throughout. There is multilevel disc space narrowing, worst at C5-C6 and C6-C7. At C2-C3 and C3-C4 there is no significant disc herniation. There is no spinal canal or neural foraminal stenosis. At C4-C5 there is disc bulge and bilateral uncovertebral and facet arthropathy. There is no canal stenosis. There is moderate left and mild right foraminal stenosis. At C5-C6 there is posterior disc osteophyte complex eccentric to the left. There is bilateral uncovertebral arthropathy, [id number]-right. There is no canal stenosis. There is moderate left and [id number] right foraminal stenosis. At C6-C7 there is mild posterior disc osteophyte complex and bilateral uncovertebral arthropathy. There is no canal stenosis. There is mild bilateral foraminal stenosis. At C7-T1 there is minimal disc bulge without canal or significant foraminal stenosis. IMPRESSION: 1. The cervical spinal cord demonstrates normal caliber and signal without pathologic enhancement. 2. Mild reversal of the cervical lordosis with multilevel degenerative changes as described by levels above. HS:Y ATED BY: TRENTON STRICKLAND MD DICTATED DATE/TIME: 05/17/241102 SIGNED BY: TRENTON STRICKLAND MD SIGNED DATE/TIME: 05/17/241102 CC: [place] [id number] Ph: [phone] DIAGNOSTIC IMAGING Diagnostic Imaging Report : [id number] Signed PATIENT: KRISS LIMON ACCT: [id number] UNIT: [id number] : 1965 [facility]GE / SEX: 58 / F ADM STATUS: ADM IN SERVICE 0932 ORDERING PHYSICIAN: ANA MARÍA CHACKO MD PROCEDURE(s): [facility] [place] - BRAIN HEAD WO W CONTRAST REASON: ORDER NUMBER(s): [id number], ACCESSION NUMBER(s): [id number] MRI BRAIN WITH AND WITHOUT CONTRAST CLINICAL HISTORY: MS TECHNIQUE: Multiplanar multisequence images were obtained prior to and following intravenous administration of contrast. 10 cc of gadavist contrast from a prefilled syringe was administered intravenously. Comparison: CT head 05/16/2024 FINDINGS: There is no restricted diffusion. There are scattered small hyperintense T2/FLAIR foci seen in the bilateral cerebral white matter compatible with demyelinating plaques. There are no obvious plaque seen in the infratentorial white matter. There is no significant callosal atrophy. There is no pathologic enhancement. There is no evidence of hemorrhage, mass, mass effect or midline shift. There is no hydrocephalus or extra-axial fluid collection. The visualized intracranial vasculature demonstrates appropriate flow-voids. The craniocervical junction is within normal limits. The calvarium demonstrates normal marrow signal. The paranasal sinuses and mastoid air cells are clear. IMPRESSION: 1. Scattered nonenhancing hyperintense T2/FLAIR demyelinating plaques in the supratentorial white matter. There is no evidence of an active plaque. Comparison with any available MR brain studies is recommended to evaluate disease progression. HS:Y ATED BY: TRENTON TSRICKLAND MD DICTATED DATE/TIME: 05/17/24 111 SIGNED BY: TRENTON STRICKLAND MD SIGNED DATE/TIME: 05/17/24 111 CC: [place] [id number] Ph: [phone] DIAGNOSTIC IMAGING Diagnostic Imaging Report : [id number] Signed PATIENT: KRISS LIMON ACCT: [id number] UNIT: [id number] : 1965 LOC: OVERFLOW ROOM / BED: [address] [place] [address] / AGE / SEX: 58 / F ADM STATUS: ADM IN SERVICE 0904 ORDERING PHYSICIAN: ANA MARÍA CHACKO MD PROCEDURE(s): CXR1 - CHEST XRAY 1 VIEW REASON: Pneumonia ORDER NUMBER(s): [id number], ACCESSION NUMBER(s): [id number] CHEST RADIOGRAPH Indication:Pneumonia Technique: Single frontal view of the chest was obtained Comparison: XY CHEST PORTABLE on DOS: 03/09/23, XY CHEST PORTABLE on DOS: 10/09/22 FINDINGS: Lines and Tubes: None Lungs: No focal consolidation. Pleura: No effusion. No pneumothorax. Cardiomediastinal contours: Unremarkable Bones: No acute osseous abnormality. IMPRESSION: No acute cardiopulmonary disease. ATED BY: KIMBERLEY LOAIZA MD DICTATED DATE/TIME: 05/17/24941 SIGNED BY: KIMBERLEY LOAIZA MD SIGNED DATE/TIME: 05/17/24941 CC: [place] [id number] Ph: [phone] DIAGNOSTIC IMAGING Diagnostic Imaging Report : [id number] Signed PATIENT: KRISS LIMON ACCT: [id number] UNIT: [id number] : 1965 LOC: ER ROOM / BED: / AGE / SEX: 58 / F ADM STATUS: REG ER SERVICE 1603 ORDERING PHYSICIAN: CODIE DOMINGO MD PROCEDURE(s): HWOCT - HEAD WITHOUT CONTRAST REASON: Increased Multiple Scelorsisi Symptoms ORDER NUMBER(s): [id number], ACCESSION NUMBER(s): [id number] EXAM: CT HEAD WITHOUT CONTRAST INDICATION: Increased Multiple Scelorsisi Symptoms TECHNIQUE: CT of the head without intravenous contrast. Radiation Dose Information: CT Dose: CTDI volume is 53.31 mGy. Dose-length product is 1050.68 mGy*cm The dose indicators for CT are the volume Computed Tomography (CT) Dose Index (CTDIvol) and the Dose Length Product (DLP), and are measured in units of mGy and mGy-cm, respectively. These indicators are not patient dose, but values generated from the CT scanner acquisition factors. The report includes radiation exposure data for exposures received during this examination. COMPARISON: 03/09/2023 FINDINGS: There is no evidence of acute intracranial hemorrhage, extra-axial collection, mass effect, midline shift, herniation or hydrocephalus. The ventricles, sulci and cisterns are age appropriate. The begrman-white differentiation is intact. Patchy periventricular and subcortical white matter hypoattenuation is nonspecific but may be related to small vessel ischemic disease. The visualized paranasal sinuses and mastoid air cells are clear. The surrounding soft tissues and osseous structures are unremarkable. IMPRESSION: 1. Negative noncontrast CT of the head unchanged from 03/09/2023. 2. Recommend nonemergent MRI to evaluate for MS plaques which are not apparent on noncontrast CT head. ATED BY: TELLY BRADY Jr., DO DICTATED DATE/TIME: 05/16/241637 SIGNED BY: TELLY BRADY Jr., SIGNED DATE/TIME: 05/16/241637 CC: Condition at Discharge: Critical Final Diagnosis/Problems List # Questionable multiple sclerosis exacerbation , unremarkable MRI /physical exam. Status post Solu-Medrol 5 days. No complaining symptoms. # Mild hypokalemia, resolved # History of secondary progressive multiple sclerosis , patient plans to follow up with the MS specialist # History of asthma as needed treatment. # chronic back pain # migraine headache # essential hypertension # anxiety disorder # overweight with BMI of 29.6 # History of appendectomy # Acute stroke ruled out. # Generalized weakness, improved. # Questionable histrionic personality disorder needs further assessment # questionable Munchausen syndrome needs further assessment Discharge Disposition: Home Discharge Instruct/Medications Diet: Cardiac 2g Na,low cholest Activity: No Restrictions, As Tolerated Follow Up/Referral: Follow up with the General surgery, ID specialist outpatient chang. Follow up with your primary care physician within 1-2 weeks of discharge. Medications: As per MAR Please continue oral antibiotics as prescribed Discharge Statement: "Patient was advised to return to the ER or call 911 if any headaches, dizziness, shortness of breath, chest pain, abdominal pain, bleeding, fevers, or worsening of medical condition. Patient was counseled about treatment plan, medications, possible side effects, patientverbalized understanding. All questions were answered to the best of my ability. This discharge took greater then 30 minutes in planning, reviewing documentation, counseling the patient, and discussing with other team members." Physical Exam Comments GENERAL:Normal, HEENT:Normal, NECK:Normal, LUNGS:Normal (Bilateral clear lungs, no adventitious sound, breathing in room air.), CVS:Normal, ABDOMEN:Normal, MSK:Abnormal (Grossly patient's upper and lower extremity has equal 5/5 strength, no focal neuro deficits/weakness noted.), SKIN:Normal, NEURO:Abnormal (Patient is alert, oriented x3, poor memory, extremely tangential, low frustration tolerance tolerability, anxious affect. (No neck rigidity noted) Date of Service: May 21, 2024 Billing Provider: ROCKY SCHNEIDER MD Common Visit Codes: 31734-LAA/OBS DISCH DAY >30min ASSESSMENT ASSESSMENT Assessment JAMISON ALMENDAREZ RESIDENT May 21, 2024 07:49 ROCKY SCHNEIDER MD May 21, 2024 21:01
[2024-05-21 08:00] VITALS: PULSE 79; RESP 17; O2SAT 94
[2024-05-21 09:00] VITALS: BP 129/81; PULSE 79; RESP 17; TEMP 97.7; O2SAT 94
--- NOTE | 2024-05-21 10:19 | DVHPN2 ---
Progress Note - Dictate Date Seen: May 21, 2024 Medical Necessity Reason Pt with a Central, PICC or Fol: No Subjective Ms. Carmen is a right-handed female with a history of anxiety, depression, asthma, cervical cancer s/p hysterectomy, she came to the [facility] on 05/16/2024 with a chief company of MS flares up. I have seen and examined the patient, I have talked to her nurse and other medical staff, the case was discussed with primary care team She reports that she was doing better after the treatment in the hospital, she could not call her [place] doctor for rescheduling She walks with two sticks on the floor, per my observation, she may not need them She talks excessively I have given her MRI brain and C-spine reports The following is the information I obtained from out of facility [facility] MRI CSP wwo, 12/04/20: Severe canal stenosis with mild impingement on the ventral thecal sac at C5-C6. Mild nonspecific increased or signal and postcontrast enhancement in the disc space at C5-C6. Findings could represent discitis in the appropriate clinical setting. Clinical correlation advised (The intrinsic cervical cord signal appears intact) MRI TSP wwo, 12/04/20: No significant posterior disc disease, central canal or neural foraminal narrowing (The thoracic cord signal and contour appear intact.) MRI LSP wwo, 12/04/20: Multilevel degenerative changes of the spine most severe at L5-S1 LLU info Progressive note, 01/30/15: increased oligoclonal bands, Normal IgG index EEG, 11/14/14: Mildly abnormal EEG MRI head, 10/25/13: Increased FLAITR and T2 lesions. Not felt to be typical of demyelination disease MRI CSP, 09/18/23: Degeneration MRI TSP, 09/17/13: Normal MRI LSP, 09/17/13: Degeneration Urinalysis, 04/29/2024: No UTI CBC, 05/16/2024: Unremarkable CMP, 04/29/2024: Unremarkable TG/HDL/LDL/HDL, 12/2023: 119/189/91/75 CT head, 05/16/24: 1. Negative noncontrast CT of the head unchanged from 03/09/2023. 2. Recommend nonemergent MRI to evaluate for MS plaques which are not apparent on noncontrast CT head MRI head o, 05/17/2024: Scattered nonenhancing hyperintense T2/FLAIR demyelinating plaques in the supratentorial white matter. There is no evidence of an active plaque. Comparison with any available MR brain studies is recommended to evaluate disease progression MRI C-spine [facility], 05/17/2024: 1. The cervical spinal cord demonstrates normal caliber and signal without pathologic enhancement. 2. Mild reversal of the cervical lordosis with multilevel degenerative changes as described by levels above. vital signs Vital Sign Date Time Temp Pulse Resp B/P (MAP) Pulse Ox O2 Delivery O2 Flow Rate FiO2 05/21/24 09:00 97.7 79 17 129/81 (97) 94 97.7 05/20/24 20:00 Room Air* 0 21 Total Intake and Output 05/20/24 05/20/24 05/21/24 15:00 23:00 07:00 Intake Total 500 ml 240 ml Output Total 3 ml Balance 497 ml 240 ml medications Current Medications Medications Dose Ordered Sig/Stephan Route Start Time Stop Time Status Last Admin Dose Admin Methylprednisolone Sodium Succinate 1,000 mg DAILY@2200 IV 05/16/24 22:00 05/20/24 22:01 Cancel Lorazepam 1 mg ONCE PRN IV 05/16/24 21:30 05/21/24 09:39 1 MG Sodium Chloride 10 ml Q8HR IV 05/17/24 06:00 05/21/24 06:01 10 ML Ondansetron HCl 4 mg Q4HP PRN IV 05/16/24 22:30 Docusate Sodium 100 mg BIDPRN PRN PO 05/16/24 22:30 Acetaminophen 650 mg Q6HP PRN PO 05/16/24 22:30 05/20/24 13:33 650 MG Morphine Sulfate 2 mg Q4HPRN PRN IV 05/16/24 22:30 05/17/24 01:29 2 MG Enoxaparin Sodium 40 mg Q24H SC 05/16/24 23:00 05/20/24 22:11 40 MG Nitroglycerin 0.4 mg Q5MINP PRN SL 05/16/24 22:30 Morphine Sulfate 2 mg Q30M PRN IV 05/16/24 22:30 Lorazepam 1 mg Q6HP PRN IV 05/17/24 02:15 05/20/24 19:22 1 MG Pantoprazole Sodium 40 mg DAILY@0600 PO 05/18/24 06:00 05/21/24 06:00 40 MG Topiramate 25 mg BID PO 05/18/24 12:00 05/21/24 09:39 25 MG Baclofen 10 mg Q8HP PRN PO 05/20/24 15:30 05/20/24 17:44 10 MG objective General: the patient is well developed and nourished. No acute distress. MENTAL STATUS: Awake and alert. Oriented to person, place, time and general circumstances. Able to give personal history SPEECH, LANGUAGE, HIGHER CORTICAL FUNCTION: no aphasia or dysathria. CRANIAL NERVES: Pupils are equal, round and reactive. EOMs full and conjugate. No nystagmus. Facial sensation intact in all three divisions bilaterally. Mandibular strength intact. Facial muscles symmetrical and strength intact. SENSATION: Sensation to touch and pinprick is normal. MOTOR: Normal tone in the upper and lower extremity. Normal muscle bulk. No fasciculations. No abnormal movements or posturing. Muscle strength of the major groups in the upper extremities is 5/5. Muscle strength of the major groups in the lower extremities is 5/5. REFLEXES: Deep tendon reflexes are symmetrical. No pathological reflexes. CEREBELLAR/COORDINATION: Finger to nose is normal bilaterally. GAIT/STATION: Unremarkable though she uses two sticks laboratory and microbiology Laboratory Tests 05/17/24 18:46 05/17/24 05:05 Test 05/17/24 18:46 Range/Units Serum Glucose 145 H 74-106 mg/dL Problem List Multiple sclerosis, clinically not very convincing Multiple sclerosis exacerbation, clinically not very convincing Assessment/Plan Monitoring Supportive treatment Telemetry GI prophylaxis DVT prophylaxis Up to chair Physical therapy More recommendation per clinical course She was follow up with her [facility] neurologist This medical document was created using an electronic medical record system with [employer] dictation system. Although this document has been carefully reviewed, there may still be some phonetic and typographical errors. These areas are purely typographical due to imperfections of the software programs, and do not reflect any compromise in the patient's medical care. Prognosis poor Plan discussed with: Patient, Other Total Time (mins): 40 ANA MARÍA CHACKO MD May 21, 2024 10:19
[2024-05-21 13:00] VITALS: BP 131/73; PULSE 95; RESP 17; TEMP 97.8; O2SAT 92
[2024-05-21 14:58] VITALS: BP 131/73; PULSE 95; RESP 17; TEMP 97.8; O2SAT 96
== END 2024-05-21 15:50 | disposition home or self-care (01) | DRG 59 ==
LOC: ER 15:52 → OVERFLOW 22:28 → WEST WING 05-18 03:15
PROVIDERS: ADMIT Student in an Organized Health Care Education/Training Program; ATTEND Student in an Organized Health Care Education/Training Program
DX: G35 Multiple sclerosis (principal); F68.10 Factitious disorder imposed on self, unspecified; G89.29 Other chronic pain; E87.6 Hypokalemia; F03.90 Unspecified dementia, unspecified severity, without behavioral disturbance, psychotic disturbance, mood disturbance, and anxiety; G43.909 Migraine, unspecified, not intractable, without status migrainosus; F41.9 Anxiety disorder, unspecified; J45.909 Unspecified asthma, uncomplicated; E66.3 Overweight; Z68.29 Body mass index [BMI] 29.0-29.9, adult; Z90.710 Acquired absence of both cervix and uterus; Z87.891 Personal history of nicotine dependence; Z85.41 Personal history of malignant neoplasm of cervix uteri; Z80.0 Family history of malignant neoplasm of digestive organs; Z83.3 Family history of diabetes mellitus; F60.4 Histrionic personality disorder
CPT/HCPCS: 36415; 70450; 70553; 71045; 72142; 80048; 80053; 80307; 81001; 82306; 82607; 83036; 83735; 84443; 85025; 87426; 96374; 97110; 97116; 97163; 97530; G0378